=== PATIENT | female | born 1940 | race Caucasian/White ===

== ENCOUNTER → 2016-07-17 | Outpatient (CLI) | payer MEDICARE ==
[~2016-07-17] MED LIST: ALBUTEROL MININEB NEB; ALTACE PO; AMOXICILLIN875 MG PO; ANEXSIA 7.5/3251 TA1 PO; ANTARA; ASPIRIN81 M2 PO; ASPIRINEC PO; BAYER CHEWABLE81 MG PO; BETAPACE80 MG PO; BROVANA; CALTRATE 600 W-1 TAB PO; CARAFATE1 G PO; CARVEDILOL6.25 MG PO; CENTRUM SILVER PO; COMBIVENT U/D3 M2 INH; DULERA 200 MCG/13 GM INH; EZETIMIBE10 MG PO; FERRO-TIME325 MG PO; FERROUS GLUCON324 MG PO; FERROUS SULFAT325 MG PO; KCL PO; LASIX20 MG PO; LIPITOR80 MG PO; LISINOPRIL10 MG PO; LOPRESSOR PO; LORCET PLUS 7.1 EACH PO; NEXIUM PO; NITROSTAT0.4 MG SL; ONDANSETRON ODT4 MG PO; OXYGEN; PEPCID40 MG PO; PLAVIX PO; PLETAL50 MG PO; POTASSIUM GLU2.5 ME1 PO; POTASSIUM99 M2 PO; PREDNISONE PO; PRILOSEC PO; REQUIP4 MG PO; ROLLATOR; ROPINIROLE HCL4 M1 PO; TEMAZEPAM PO; TEMAZEPAM30 MG PO; TIZANIDINE HCL2 MG PO; TOPROL XL PO; VITAMIN D-32000 UNI2 PO; VITAMIN D32000 UNIT PO; WELLBUTRIN PO; XARELTO15 MG PO; XOPENEX HFA15 GM NEB; ZOCOR PO
--- NOTE | ~2016-07-17 | CT57 ---
[facility] A Service of [facility] & [facility] RADIOLOGY TEXT RESULTS PATIENT: ERICKSON VIZCARRA [facility] UN[facility] #: [id number] AGE: [address]: David Julien MD SEX: F ORDER DR: [id number] [facility]. [place], [place] [address] [id number] O MR#: [id number] [facility] #: [id number] NAME: ERICKSON VIZCARRA : 1940 SEX: F STUDY DATE/TIME: 07/17/2016 15:17 [facility] RO[facility]: STUDY DESCRIPTION: CT Chest Wo Cont Attending Physician: David Julien M.D. Referring Physician: David Julien M.D. Ordering Physician: David Julien M.D. Primary Care Physician: David Julien M.D. MEDICAL IMAGING REPORT This report is preliminary unless electronic signature is present EXAM CT of the chest without contrast. INDICATION Worsening shortness of breath for ovy-tf-vfapj months. COPD. TECHNIQUE CT of the chest was performed without contrast. Coronal and sagittal reformatted images were obtained. Reformatted images were obtained. COMPARISON Comparison with 03/13/16. This CT exam was performed with one or more of the following radiation dose reduction techniques: automatic exposure control, adjustment of mA and/or kV according to patient size, and iterative reconstruction. FINDINGS Emphysema. Stable 5 mm nodule in the right upper lobe on image 28. There is an irregular parenchymal density in the left lower lobe which may be slightly smaller particularly when seen on the coronal view where it appears more linear rather than nodular. There is some slightly increased at presumed scarring more inferiorly within the left lower lobe. There is some minimal scarring or atelectasis in the base of the right lower lobe. No new pulmonary nodules. Prior sternotomy and CABG. No suspicious lymphadenopathy or pleural effusion. Limited imaging of the upper abdomen is unremarkable. The bone windows are unremarkable. IMPRESSION 1. Irregular parenchymal density in the left lower lobe appears slightly smaller particularly when viewed of the coronal slices. Continued [facility] A Service of [facility] & [facility] RADIOLOGY TEXT RESULTS PATIENT: ERICKSON VIZCARRA LOCATION: [facility] : 38 UNIT #: [id number] AGE: [address]: David Julien MD SEX: F ORDER DR: followup is recommended. 2. Stable 5 mm nodule in the right upper lobe. 3. Linear areas of scarring or atelectasis elsewhere in the lungs. Dictated by... Jan Pickering M.D. THIS IS AN ELECTRONICALLY VERIFIED REPORT Jan Pickering M.D. at 07/18/2016 5:15 PM STEPHENIE/paz TD: 07/17/2016 23:48 JOB #: [id number] MEDICAL IMAGING REPORT Page 1 of 1 COPY
== END | disposition home or self-care (01) ==
LOC: CCAT 14:43
DX: J44.9 Chronic obstructive pulmonary disease, unspecified (principal); J98.4 Other disorders of lung; R91.1 Solitary pulmonary nodule
CPT/HCPCS: 71250

== ENCOUNTER 2016-07-28 11:03 | Emergency (ER) | payer MEDICARE ==
--- NOTE | ~2016-07-28 | CT16 ---
[facility] A Service of [facility] / [facility] RADIOLOGY TEXT RESULTS PATIENT: ERICKSON VIZCARRA LOCATION: [facility] : 38 UNIT #: [id number] AGE: [address]: Jak Gregg MD SEX: F ORDER DR: [id number] [facility] [address] [place], [place] [address] [id number] E MR#: [id number] Acc #: [id number] NAME: ERICKSON VIZCARRA : 1940 SEX: F STUDY DATE/TIME: 07/28/2016 13:58 UNIT: [facility] ROOM: STUDY DESCRIPTION: CT Angio Chest for PE Attending Physician: Jak Gregg M.D. Ordering Physician: Jak Gregg M.D. Primary Care Physician: David Julien M.D. MEDICAL IMAGING REPORT This report is preliminary unless electronic signature is present EXAM Chest CTA, 07/28 INDICATION Shortness of air and left lower rib and chest pain for jpx-yg-yscos months. History of COPD. TECHNIQUE Axial images were obtained through the chest following IV contrast administration. 3-D reformats were obtained. This CT exam was performed with one or more of the following radiation dose reduction techniques: automatic exposure control, adjustment of mA and/or kV according to patient size, and iterative reconstruction. COMPARISON 07/17/2016. FINDINGS There is no pulmonary embolism or aortic dissection. There is coronary artery disease and extensive atherosclerotic disease. There is no pleural or pericardial effusion. There is no adenopathy. There is a high-grade stenosis in the proximal left subclavian artery distal to its origin. There is emphysema. There is a stable 5.0 mm right middle lobe nodule. Presumed chronic scarring in the left lower lobe is also stable. There is some atelectasis in the right lower lobe today. There are no infiltrates seen to suggest pneumonia. Upper abdomen shows changes of cholecystectomy as well as atherosclerotic disease. IMPRESSION 1. No pulmonary embolism or aortic dissection. 2. Emphysema with stable chronic scarring in the left lower lobe. 3. Stable right middle lobe 5.0 mm nodule. [facility] A Service of [facility] & [facility] RADIOLOGY TEXT RESULTS PATIENT: ERICKSON VIZCARRA [id number] 38 UNIT #: [id number] AGE: [address]: Jak Gregg MD SEX: F ORDER DR: 4. New mild atelectasis right lower lobe. 5. Extensive atherosclerotic disease with high-grade stenosis in the left subclavian artery just distal to its origin. 6. Coronary artery disease. Dictated by... Jake Burton Jr., M.D. THIS IS AN ELECTRONICALLY VERIFIED REPORT Jake Burton Jr., M.D. at 07/28/2016 5:00 PM LIZZ/heath TD: 07/28/2016 16:01 JOB #: [id number] MEDICAL IMAGING REPORT Page 1 of 1 COPY
--- NOTE | ~2016-07-28 | EKG ---
PATIENT: VIZCARRA, DENVER UNIT #: [id number] Ventricular Rate: 65 BPM Atrial Rate: 65 BPM P-R Interval: 134 ms QRS Duration: 86 ms Q-T Interval: 394 ms QTC Calculation(Bezet): 409 ms P [place]: 37 degrees Calculated R [place]: 72 degrees Calculated T [place]: 78 degrees Diagnosis Line: Normal sinus rhythm Diagnosis Line: Normal ECG Diagnosis Line: When compared with ECG of 17-DEC-2015 19:17, Diagnosis Line: Nonspecific T wave abnormality, worse in Lateral Diagnosis Line: leads Diagnosis Line: Confirmed by JOE ZAPATA MD ([id number]) on 07/29/2016 Diagnosis Line: 7:31:59 AM INTERPRETING MD: BENNY MORA
--- NOTE | ~2016-07-28 | CR72 ---
[facility] A Service of [facility] RADIOLOGY TEXT RESULTS PATIENT: ERICKSON VIZCARRA LOCATION: [facility] : 38 UNIT #: [id number] AGE: [address]: Jak Gregg MD SEX: F ORDER DR: [id number] [facility] [address] [place], [place] [address] [id number] E MR#: [id number] Acc #: [id number] NAME: ERICKSON VIZCARRA : 1940 SEX: F STUDY DATE/TIME: 07/28/2016 12:37 UNIT: [facility] ROOM: STUDY DESCRIPTION: CR Chest Single View Portable Attending Physician: Jak Gregg M.D. Ordering Physician: Jak Gregg M.D. Primary Care Physician: David Julien M.D. MEDICAL IMAGING REPORT This report is preliminary unless electronic signature is present EXAM Chest portable 07/28/2016 1237 hours CLINICAL HISTORY 76-year-old woman with shortness of air and pain in the lower left ribs today. COMPARISON Chest CT 07/17/2016. FINDINGS Single upright portable view demonstrates CABG change with a single vertically-oriented wire at the sternum. This is unchanged. The heart size is normal. The pulmonary vascularity is normal. There is underlying emphysematous change with linear density at the left base unchanged. No acute pulmonary or pleural finding is seen. No rib lesion is seen. IMPRESSION Emphysematous changes with linear density at the left base similar to prior exams. No acute superimposed pulmonary density or pleural effusion. No rib lesion seen. Dictated by... Deja Munoz M.D. THIS IS AN ELECTRONICALLY VERIFIED REPORT Deja Munoz M.D. at 07/28/2016 8:02 PM EMMANUELLE/isadora TD: 07/28/2016 14:19 JOB #: [id number] [facility] A Service [facility] RADIOLOGY TEXT RESULTS PATIENT: ERICKSON VIZCARRA LOCATION: [facility] #: [id number] : 38 UNIT #: [id number] AGE: [address]: Jak Gregg MD SEX: F ORDER DR: MEDICAL IMAGING REPORT Page 1 of 1 COPY
[~2016-07-28 11:03] MED LIST changes: -AMOXICILLIN875 MG PO; -BAYER CHEWABLE81 MG PO; -BETAPACE80 MG PO; -COMBIVENT U/D3 M2 INH; -DULERA 200 MCG/13 GM INH; -EZETIMIBE10 MG PO; -FERROUS GLUCON324 MG PO; -FERROUS SULFAT325 MG PO; -LASIX20 MG PO; -LIPITOR80 MG PO; -LORCET PLUS 7.1 EACH PO; -NITROSTAT0.4 MG SL; -PEPCID40 MG PO; -POTASSIUM GLU2.5 ME1 PO; -POTASSIUM99 M2 PO; -PREDNISONE PO; -ROLLATOR; -ROPINIROLE HCL4 M1 PO; -TIZANIDINE HCL2 MG PO; -VITAMIN D-32000 UNI2 PO; -XARELTO15 MG PO
[2016-07-28 11:52] LABS: BASOPHIL% 0.8 % (0-2.5); EOSINOPHIL# 0.1 X10e3 (0-0.7); EOSINOPHIL% 2.5 % (0.0-7.0); HEMATOCRIT 33.6 % (35.0-45.0); LYMPHOCYTE# 0.5 X10e3 (1.0-3.5); MEAN CELL VOLUME 89.9 FL (83-96); MEAN CORPUSCULAR HEMOGLOBIN 29.4 PG (28-34); MEAN CORPUSCULAR HGB CONC 32.7 g/dL (30-36); MEAN PLATELET VOLUME 7.3 FL (6.5-11.5); MONOCYTE# 0.5 X10e3 (0-1.0); MONOCYTE% 8.2 % (3.0-12.0); NEUTROPHIL# 4.7 X10e3 (1.5-7.1); NEUTROPHIL% 79.5 % (40-75); PLATELET COUNT 294 X10e3 (140-420); RED BLOOD COUNT 3.74 X10e (3.90-5.30); RED CELL DISTRIBUTION WIDTH 15.2 % (11.0-15.5); WHITE BLOOD COUNT 5.9 X10e3 (4.0-10.5)
[2016-07-28 11:54] LABS: DIFF IND NO
[2016-07-28 12:07] LABS: PARTIAL THROMBOPLASTIN TIME 22.9 SECONDS (23.5-31.3)
[2016-07-28 12:11] LABS: POC - CKMB <1.0 ng/mL (0.0-7.9); POC - TROPONIN <0.05 ng/mL (<=0.05)
[2016-07-28 12:22] LABS: ALBUMIN SERUM 3.6 g/dL (3.5-5.0); ALKALINE PHOSPHATASE 84 U/L (32-92); ALT (SGPT) 15 U/L (10-40); AST (SGOT) 18 U/L (10-42); BILIRUBIN,TOTAL 0.5 mg/dL (0.2-2.0); BLOOD UREA NITROGEN 20 mg/dL (9-23); BUN/CREATININE RATIO 22.22; CARBON DIOXIDE 34 mmol/L (22-31); CHLORIDE 98 mmol/L (100-111); CREATININE SERUM 0.9 mg/dL (0.6-1.4); GLOM FILT RATE Estimated 61.3 mL/min (>60); GLUCOSE FASTING 127 mg/dL (70-110); POTASSIUM 4.1 mmol/L (3.5-5.1); PROTEIN TOTAL SERUM 6.5 g/dL (6.0-8.3); SODIUM 138 mmol/L (135-145)
[2016-07-28 12:23] LABS: BILIRUBIN, DIRECT <0.1 mg/dL (0.0-0.2); BILIRUBIN,INDIRECT 0.4 mg/dL (0.0-0.9)
== END 2016-07-28 15:28 | disposition home or self-care (01) ==
LOC: CED 11:03
PROVIDERS: Emergency Medicine
DX: J44.1 Chronic obstructive pulmonary disease with (acute) exacerbation (principal); R07.89 Other chest pain; K21.9 Gastro-esophageal reflux disease without esophagitis; E78.5 Hyperlipidemia, unspecified; I10 Essential (primary) hypertension; Z86.79 Personal history of other diseases of the circulatory system; Z90.49 Acquired absence of other specified parts of digestive tract; Z79.899 Other long term (current) drug therapy
CPT/HCPCS: 36415; 71010; 71275; 80048; 80076; 82553; 83880; 84484; 85025; 85610; 85730; 87040; 93005; 94640; 96374; 96375; 99285; J2270; J2405; J2930; Q9967

== ENCOUNTER → 2016-09-25 | Outpatient (CLI) | payer MEDICARE ==
[~2016-09-25] MED LIST changes: +AMOXICILLIN875 MG PO; +BAYER CHEWABLE81 MG PO; +BETAPACE80 MG PO; +COMBIVENT U/D3 M2 INH; +DULERA 200 MCG/13 GM INH; +EZETIMIBE10 MG PO; +FERROUS GLUCON324 MG PO; +FERROUS SULFAT325 MG PO; +LASIX20 MG PO; +LIPITOR80 MG PO; +LORCET PLUS 7.1 EACH PO; +NITROSTAT0.4 MG SL; +PEPCID40 MG PO; +POTASSIUM GLU2.5 ME1 PO; +POTASSIUM99 M2 PO; +PREDNISONE PO; +ROLLATOR; +ROPINIROLE HCL4 M1 PO; +TIZANIDINE HCL2 MG PO; +VITAMIN D-32000 UNI2 PO; +XARELTO15 MG PO
--- NOTE | ~2016-09-25 | MY29 ---
[facility] A Service of [facility] & [facility] RADIOLOGY TEXT RESULTS PATIENT: ERICKSON VIZCARRA LOCATION: [facility] : 38 UNIT #: [id number] AGE: [address]: David Julien MD SEX: F ORDER DR: [id number] [facility] [address] [place], [place] [address] [id number] O MR#: [id number] Acc #: [id number] NAME: ERICKSON VIZCARRA : 1940 SEX: F STUDY DATE/TIME: 09/25/2016 10:33 UNIT: [facility] ROOM: STUDY DESCRIPTION: MY SABRINA SCREENING W/ CAD BILAT Attending Physician: David Julien M.D. Referring Physician: David Julien M.D. Ordering Physician: David Julien M.D. Primary Care Physician: David Julien M.D. MEDICAL IMAGING REPORT This report is preliminary unless electronic signature is present EXAM Digital screening mammogram 09/25/2016 HISTORY 76-year-old woman. No risk elevation. Annual screen. COMPARISON Mammograms 08/10/2014, 09/11/2015. FINDINGS Digital imaging of each breast was completed utilizing screening protocol. Review includes FDA-approved CAD device. Breast parenchyma remains dense with a small nodular pattern centrally located in each breast slightly dominant in the right breast. I see no suspicious mass characteristics. There are no interval-occurring microcalcifications and no suspicious architectural deformity. IMPRESSION Benign mammogram. Annual screening recommended. Patient's over the age of 40 are entered into a reminder system with target due date for the next mammogram. BIRADS: 2 Benign findings Dictated by... Enrique Dougherty M.D. THIS IS AN ELECTRONICALLY VERIFIED REPORT Enrique Dougherty M.D. at 09/25/2016 3:59 PM KENNEDY/isadora [facility] A Service of [facility] & [facility] RADIOLOGY TEXT RESULTS PATIENT: ERICKSON VIZCARRA [id number] : 38 UNIT #: [id number] AGE: [address]: David Julien MD SEX: F ORDER DR: TD: 09/25/2016 15:29 JOB #: [id number] MEDICAL IMAGING REPORT Page 1 of 1 COPY
== END | disposition home or self-care (01) ==
LOC: CWCC 10:11
DX: Z12.31 Encounter for screening mammogram for malignant neoplasm of breast (principal)
CPT/HCPCS: G0202

== ENCOUNTER 2016-10-08 20:36 | Inpatient (IN) | payer MEDICARE ==
[~2016-10-08] VITALS: Ht 162.6 cm; Wt 62.2 kg
--- NOTE | ~2016-10-08 | EKG ---
PATIENT: [facility] UNIT #: [id number] Ventricular Rate: 65 BPM Atrial Rate: 65 BPM P-R Interval: 146 ms QRS Duration: 88 ms Q-T Interval: 406 ms QTC Calculation(Bezet): 422 ms P [place]: 68 degrees Calculated R [place]: 72 degrees Calculated T [place]: 89 degrees Diagnosis Line: Sinus rhythm with Premature atrial complexes Diagnosis Line: Otherwise normal ECG Diagnosis Line: No previous ECGs available Diagnosis Line: Confirmed by JOE ZAPATA MD ([id number]) on 10/09/2016 Diagnosis Line: 5:13:05 PM INTERPRETING MD: BENNY MORA
--- NOTE | ~2016-10-08 | CR195 ---
[facility] A Service of [facility] & [facility] RADIOLOGY TEXT RESULTS PATIENT: ERICKSON SILVA LOCATION: [facility] 560-01 : 38 UNIT #: [id number] AGE: [address]: Fareed Carreon MD SEX: F ORDER DR: [id number] [facility] [address] [place], [place] [address] [id number] I MR#: [id number] Acc #: [id number] NAME: ERICKSON SILVA : 1940 SEX: F STUDY DATE/TIME: 10/09/2016 0:51 UNIT: [facility] ROOM: [facility] STUDY DESCRIPTION: CR Neck Soft Tissue Attending Physician: Fareed Carreon M.D. Ordering Physician: Kermit Dale D.O. Primary Care Physician: David Julien M.D. MEDICAL IMAGING REPORT This report is preliminary unless electronic signature is present EXAM Soft tissue neck series 10/09/2016 HISTORY A 76-year-old female in the ED complaining of 1-month history intermittent shortness of air and chest pain. Decreased oxygen saturation tonight. History of COPD. TECHNIQUE Two-view soft tissue neck series. FINDINGS Examination is negative. The epiglottis is not enlarged. No visible airway narrowing or tracheal deviation. No prevertebral soft tissue swelling. IMPRESSION Negative soft tissue neck series. Dictated by... Pedro Mack M.D. THIS IS AN ELECTRONICALLY VERIFIED REPORT Pedro Mack M.D. at 10/12/2016 11:06 PM Dary TD: 10/09/2016 13:30 JOB #: [id number] MEDICAL IMAGING REPORT Page 1 of 1 COPY
--- NOTE | ~2016-10-08 | CT16 ---
[facility] A Service of [facility] RADIOLOGY TEXT RESULTS PATIENT: ERICKSON SILVA LOCATION: [facility] 560-01 : 38 UNIT #: [id number] AGE: [address]: Fareed Carreon MD SEX: F ORDER DR: [id number] [facility] [address] [place], [place] [address] [id number] I MR#: [id number] Acc #: [id number] NAME: ERICKSON SILVA : 1940 SEX: F STUDY DATE/TIME: 10/09/2016 2:37 UNIT: [facility] ROOM: [facility] STUDY DESCRIPTION: CT Angio Chest for PE Attending Physician: Fareed Carreon M.D. Ordering Physician: Kermit Dale D.O. Primary Care Physician: David Julien M.D. MEDICAL IMAGING REPORT This report is preliminary unless electronic signature is present EXAM CT chest with contrast, pulmonary arteriography protocol, 10/09/2016 HISTORY A 76-year-old female in the ED complaining of 1-day history of shortness of air and chest pain radiating into the right arm and back. TECHNIQUE CT examination of the chest with IV contrast using pulmonary arteriography protocol. CTA MIP images of the pulmonary arteries were reformatted in multiple planes. This CT exam was performed with one or more of the following radiation dose reduction techniques: automatic exposure control, adjustment of mA and/or kV according to patient size, and iterative reconstruction. COMPARISON STUDIES CTA chest, 07/28/2016. CT chest, 05/24/2007. FINDINGS No pulmonary embolism is demonstrated. Thoracic aorta is normal in caliber. Postop changes previous CABG surgery. Pleural and subpleural scarring in the peripheral left lower lobe, unchanged. Benign 5 mm pulmonary nodule in the right midlung, unchanged since 2007. Moderately severe diffuse pulmonary emphysema. No airspace consolidation or pleural effusion. No suspicious mass or adenopathy within the mediastinum or pulmonary yary. IMPRESSION [facility] A Service of [facility] RADIOLOGY TEXT RESULTS PATIENT: ERICKSON SILVA LOCATION: [facility] 560-01 : 38 UNIT #: [id number] AGE: [address]: Fareed Carreon MD SEX: F ORDER DR: 1. No evidence of pulmonary embolism or other acute vascular abnormality within the chest. 2. Advanced pulmonary emphysema. Stable chronic pulmonary and subpleural scarring in the peripheral left lung base. 3. A 5 mm benign pulmonary nodule in the right middle lobe unchanged since 05/23/2008. 4. Postop changes CABG surgery. Dictated by... Pedro Mack M.D. THIS IS AN ELECTRONICALLY VERIFIED REPORT Pdero Mack M.D. at 10/12/2016 11:07 PM Dary TD: 10/09/2016 13:48 JOB #: [id number] MEDICAL IMAGING REPORT Page 1 of 1 COPY
--- NOTE | ~2016-10-08 | CO ---
Unit #: [id number] #: [id number] Patient: ERICKSON SILVA [id number] [facility]. [place], [place] [address] [id number] I MR#: [id number] NAME: ERICKSON SILVA ROOM: 560 Age: 76 Sex: F Admission Date: 10/09/2016 : 1940 Attending Physician: Fareed Carreon M.D. Primary Care Physician: David Julien M.D. CONSULTATION REPORT REASON FOR CONSULTATION Atrial fibrillation. HISTORY OF PRESENT ILLNESS This is a 76-year-old white female who has known coronary artery disease where she underwent coronary artery bypass graft x3 in the past. She is known to have hypertension, hyperlipidemia, and a history of lung cancer where she underwent radiation therapy. The patient gives a history of having valve replacement with her coronary artery bypass graft. The patient presents to the emergency room with right posterior shoulder pain. She states her pain has been ongoing for at least the past month. It is made worse with movement. An electrocardiogram done in the emergency room found the patient to be in atrial fibrillation with rapid ventricular response with a rate of 140 beats per minute. She was unaware of palpitations. She had no chest pain at the time of presentation in the emergency room; however, the patient states she does have midsternal chest pain and epigastric pain on occasion. She is very active where she ambulates around her apartment complex but gets short of breath with exertion and has to stop to sit to rest before proceeding on. She also reports weight loss from 138 a month ago to 124 today. She reports a good appetite. Troponin is negative. She was started on Cardizem drip in the emergency room and has since converted to normal sinus rhythm. PAST MEDICAL HISTORY 1. A 2D echocardiogram, October 19, 2013, at [facility] which shows an ejection fraction of 64%. Right ventricle mildly enlarged. There is mild aortic stenosis with mean gradient of 11 mmHg. Peak gradient of 20 mmHg. Calculated aortic valve area 2.15 cm square. Vwsteqaj-xb-bkwvco tricuspid regurgitation with right ventricular systolic pressure of 39 mmHg. 2. Lexiscan Cardiolite stress test, October 20, 2013, at [facility] that revealed no ischemia or infarct. An ejection fraction of 77%. 3. Hypertension. 4. Hyperlipidemia. 5. Coronary artery bypass graft x3 with questionable valve replacement in 2002. 6. Peripheral vascular disease, status post bilateral carotid endarterectomy. 7. History of gastrointestinal bleed with arteriovenous malformation, October 2013, status post cauterization. 8. Lung cancer, status post radiation therapy. 9. COPD. Unit #: [id number] #: [id number] Patient: ERICKSON SILVA 10. Former smoker. PAST SURGICAL HISTORY 1. Coronary artery bypass graft x3 with questionable valve surgery in 2002. No details available. 2. Bilateral carotid endarterectomy. 3. Hemorrhoidectomy. 4. Right foot surgery. 5. Cholecystectomy. 6. Bilateral cataract extraction. SOCIAL HISTORY The patient lives in assisted living facility. She quit smoking at the time of her bypass surgery in 2002. She denies illicit drug and alcohol use. FAMILY HISTORY Positive for heart problems with father. ALLERGIES No known drug allergies. HOME MEDICATIONS 1. Vitamin D3 at 2000 units daily. 2. Restoril 30 mg nightly. 3. Potassium gluconate one tablet daily. 4. Aspirin 81 mg daily. 5. Hydrocodone/acetaminophen 7.5/325 one q.i.d. 6. Nitroglycerin 0.4 mg sublingual p.r.n. 7. Ropinirole 4 mg nightly. 8. Zetia 10 mg daily. 9. Ferrous sulfate 325 mg daily. 10. Pepcid 40 mg daily. 11. Carvedilol 6.25 mg b.i.d. 12. Lisinopril 10 mg daily. 13. Zanaflex 2 mg q.i.d. p.r.n. 14. Lipitor 80 mg nightly. 15. Furosemide 20 mg daily. REVIEW OF SYSTEMS CONSTITUTIONAL: Negative for fever or chills. Has report of weight loss. No fatigue or weakness. HEENT: No headache, hearing or visual changes, difficulty with swallowing. No dizziness. CARDIOVASCULAR: Has chest pain described in the HPI. Denies palpitations. No paroxysmal nocturnal dyspnea or orthopnea. No syncope or near syncope. RESPIRATORY: Has dyspnea on exertion. No cough or hemoptysis. GASTROINTESTINAL: Complained of epigastric pain. No nausea, vomiting. No constipation or melena. EXTREMITIES: Negative for lower extremity edema. Complains of right posterior shoulder pain. PHYSICAL EXAMINATION VITAL SIGNS: Blood pressure 135/53, heart rate 68, temperature 98.1, BMI 21. GENERAL: This is a mildly obese 76-year-old white female who is in no acute distress. Unit #: [id number] #: [id number] Patient: DOLLY VIZCARRA,ERICKSON NEUROLOGIC: She is awake, alert and oriented. Noted for forgetfulness. NECK: Trachea is midline. No thyromegaly or lymphadenopathy. No jugular venous distention. HEART: S1, S2 heart sounds are normal. No murmurs. No rubs. No clicks. Regular rate and rhythm. LUNGS: Rhonchi in both lung bases. ABDOMEN: Soft, nontender but bowel sounds are present. No masses appreciated. EXTREMITIES: Without leg edema. SKIN: Warm and dry. DIAGNOSTIC STUDIES LABORATORY: Glucose 95, BUN 18, creatinine 0.9, sodium 134, potassium 3.7. CK total 49, troponin 0.04. BNP 166. TSH 0.86, free T4 of 0.9. White count 5, hemoglobin 10.7, hematocrit 32.4, platelet count 320,000. IMAGING: Chest x-ray showed pulmonary emphysema. CT angio of the chest shows no evidence of pulmonary embolism or acute vascular abnormality, advanced pulmonary emphysema. CARDIOVASCULAR: Presenting electrocardiogram shows atrial fibrillation with rapid ventricular response, rate of 148 beats per minute with premature ventricular complex. Repeat electrocardiogram: Normal sinus rhythm with rate of 73 beats per minute with premature atrial complexes. There is T-wave inversion in the lateral leads. IMPRESSION 1. New-onset atrial fibrillation, rapid ventricular response, converted to normal sinus rhythm. 2. Status post coronary artery bypass graft with questionable valve surgery. 3. Status post radiation therapy for lung cancer. 4. Stable angina pectoris. 5. Hypertension. 6. Hyperlipidemia. 7. Chronic obstructive pulmonary disease. PLAN 1. Cardiology was consulted for atrial fibrillation with rapid ventricular response. The patient converted to normal sinus rhythm with IV Cardizem. Will discontinue Cardizem drip. Start the patient on sotalol 40 mg b.i.d. 2. Carvedilol will be discontinued. 3. The patient has a CHADS 2 VASc score of 5 and needs long-term anticoagulation. Will start the patient on Xarelto 50 mg daily. decision support manager will obtain the patient's cost. 4. Unable to obtain the bypass report from [facility] to determine if the patient had valve surgery. Echocardiogram, Lexiscan Cardiolite stress test, and cardiology note was reviewed. 5. Will follow the patient with you. Thank you for allowing us to assist with this patient's care. Unit #: [id number] #: [id number] Patient: ERICKSON SILVA Dictated by... Luis Bojorquez A.P.R.N. for Ifrah Costa TD: 10/10/2016 14:35 JOB #: [id number] CONSULTATION REPORT Page 1 of 1 X Luis Bojorquez APRN X CONSULTATION REPORT
--- NOTE | ~2016-10-08 | EKG ---
[facility] [id number] Ventricular Rate: 60 BPM Atrial Rate: 60 BPM P-R Interval: 132 ms QRS Duration: 86 ms Q-T Interval: 468 ms QTC Calculation(Bezet): 468 ms P [place]: 69 degrees Calculated R [place]: 72 degrees Calculated T [place]: 106 degrees Diagnosis Line: Sinus rhythm with Premature atrial complexes Diagnosis Line: Nonspecific ST and T wave abnormality Diagnosis Line: Abnormal ECG Diagnosis Line: Diagnosis Line: Confirmed by WILFRED URENA MD ([id number]) on Diagnosis Line: 10/12/2016 4:57:46 PM INTERPRETING MD: MERI
--- NOTE | ~2016-10-08 | EKG ---
[facility] [place] [id number] Ventricular Rate: 148 BPM Atrial Rate: 136 BPM QRS Duration: 80 ms Q-T Interval: 276 ms QTC Calculation(Bezet): 433 ms Calculated R [place]: 87 degrees Calculated T [place]: -44 degrees Diagnosis Line: Atrial fibrillation with rapid ventricular Diagnosis Line: response with premature ventricular or aberrantly Diagnosis Line: conducted complexes Diagnosis Line: Septal infarct , age undetermined Diagnosis Line: ST and T wave abnormality, consider inferior Diagnosis Line: ischemia Diagnosis Line: Abnormal ECG Diagnosis Line: No previous ECGs available Diagnosis Line: Confirmed by JOE ZAPATA MD ([id number]) on 10/09/2016 Diagnosis Line: 5:12:46 PM INTERPRETING MD: BENNY MORA
--- NOTE | ~2016-10-08 | CR72 ---
[facility] A Service of [facility] RADIOLOGY TEXT RESULTS PATIENT: ERICKSON SILVA LOCATION: [facility] 560-01 : 38 UNIT #: [id number] AGE: [address]: Fareed Carreon MD SEX: F ORDER DR: [id number] [facility] [address] [place], [place] [address] [id number] I MR#: [id number] #: [id number] NAME: ERICKSON SILVA : 1940 SEX: F STUDY DATE/TIME: 10/09/2016 0:02 UNIT: [facility] ROOM: [facility] STUDY DESCRIPTION: CR Chest Single View Portable Attending Physician: Fareed Carreon M.D. Ordering Physician: Kermit Dale D.O. Primary Care Physician: David Julien M.D. MEDICAL IMAGING REPORT This report is preliminary unless electronic signature is present EXAM Chest x-ray, 10/09/2016. HISTORY 76-year-old female in the ED complaining of 1-month history of intermittent chest pain, back pain and shortness of air. TECHNIQUE AP portable upright chest x-ray. FINDINGS The exam shows no change since chest x-ray and chest CT of 07/28/2016. Advanced pulmonary emphysema with chronic scarring in the left lung base. Previous CABG surgery and presumed removal of prior sternotomy wires with the exception of a single upper midline sternotomy wire fragment remaining. Heart size normal. No pneumothorax, acute pulmonary infiltrate or pleural effusion. IMPRESSION 1. Pulmonary emphysema. Chronic left basilar scarring. 2. Postop changes, CABG, as noted. 3. No change since 07/28/2016. Dictated by... Pedro Mack M.D. THIS IS AN ELECTRONICALLY VERIFIED REPORT Pedro Mack M.D. at 10/12/2016 11:06 PM BRIDGETT/padmini TD: 10/09/2016 13:09 JOB #: [id number] [facility] A Service of [facility] RADIOLOGY TEXT RESULTS PATIENT: ERICKSON SILVA LOCATION: [facility] 560-01 : 38 UNIT #: [id number] AGE: [address]: Fareed Carreon MD SEX: F ORDER DR: MEDICAL IMAGING REPORT Page 1 of 1 COPY
--- NOTE | ~2016-10-08 | EKG ---
PATIENT: [facility] UNIT #: [id number] Ventricular Rate: 79 BPM Atrial Rate: 79 BPM P-R Interval: 146 ms QRS Duration: 82 ms Q-T Interval: 478 ms QTC Calculation(Bezet): 548 ms P [place]: 71 degrees Calculated R [place]: 77 degrees Calculated T [place]: 110 degrees Diagnosis Line: Sinus rhythm with Premature atrial complexes Diagnosis Line: ST and T wave abnormality, consider anterolateral Diagnosis Line: ischemia Diagnosis Line: Prolonged QT Diagnosis Line: Abnormal ECG Diagnosis Line: Diagnosis Line: Confirmed by WILFRED URENA MD ([id number]) on Diagnosis Line: 10/12/2016 4:44:25 PM INTERPRETING MD: MERI
--- NOTE | ~2016-10-08 | CO ---
Unit #: [id number] #: [id number] Patient: NIEVES SILVA [id number] [address] [place], [place] [address] [id number] I MR#: [id number] NAME: NIEVES SILVA ROOM: 560 Age: 76 Sex: F Admission Date: 10/09/2016 : 1940 Attending Physician: Fareed Carreon M.D. Primary Care Physician: David Julien M.D. CONSULTATION REPORT HISTORY OF PRESENT ILLNESS Miss Nieves Peña is a 76-year-old white female with a history of chronic respiratory failure maintained on home O2, COPD, coronary artery disease, chronic anemia, non-small cell lung cancer status post radiation therapy, hypertension, hyperlipidemia, peripheral vascular disease, chronic low back pain, restless legs, presented with right posterior shoulder pain, worse with motion, had some increasing shortness of breath. In the emergency room she was noted to be in afib with rapid ventricular response. On the ER sheet her O2 saturation was 97% on 2 L, blood pressure is 107/37, pulse was initially recorded at 61 and she was afebrile. She was given Solu-Medrol 125 mg IV, 5 of [place], started on a Cardizem drip at 10 mg per hour after a 10 mg bolus. A chest x-ray showed no acute infiltrate. CT scan of the chest in emergency room showed no evidence of pulmonary emboli. It did show emphysematous changes bilaterally and some scarring in the left lower lobe peripherally. PAST MEDICAL HISTORY Medical problems as noted above including coronary artery disease, peripheral artery disease, hypertension, hyperlipidemia, COPD, chronic respiratory failure, maintained on home O2, non-small cell lung cancer, I think status post radiation therapy, history of chronic anemia. PAST SURGICAL HISTORY Cholecystectomy, right foot surgery, hemorrhoidectomy, coronary bypass grafting, bilateral carotid endarterectomy, bilateral cataract extraction. ALLERGIES None known. HOME MEDICATIONS Vitamin D3, temazepam, potassium, Russ aspirin 81 mg, Lorcet, Nitrostat, Ropinirole, ezetimibe, ferrous sulfate, Pepcid, Coreg, lisinopril, tizanidine, Lipitor, Lasix. FAMILY HISTORY Negative for lung disease. SOCIAL HISTORY No alcohol, reformed smoker. REVIEW OF SYMPTOMS CONSTITUTIONAL: No fevers or chills. HEENT: No rhinorrhea or nasal congestion. Unit #: [id number] #: [id number] Patient: NIEVES SILVA PULMONARY: Shortness of breath on exertion. CARDIAC: Right-sided posterior chest pain. Afib noted. GASTROINTESTINAL: No nausea, vomiting. GENITOURINARY: No hematuria or dysuria. ENDOCRINE: No polyuria or polydipsia. HEMATOLOGIC: Does have easy bruising. SKIN: No rash. NEUROLOGIC: No unilateral weakness or numbness. PHYSICAL EXAMINATION GENERAL: White female in no distress, lying in bed. VITAL SIGNS: Blood pressure is 135/53. Pulse 68. Respiratory rate 16. Afebrile. HEENT: Normocephalic and atraumatic. Pupils equal, round and reactive. Sclerae nonicteric. Nasal passages patent. Posterior pharynx clear. NECK: Supple. Trachea midline. No cervical or supraclavicular lymphadenopathy. LUNGS: Revealed diminished breath sounds bilaterally. Prolonged respiratory phase. No wheezing. CARDIAC: Heart sounds distant, irregularly irregular rhythm. ABDOMEN: Nontender, bowel sounds present, no hepatosplenomegaly. EXTREMITIES: Without cyanosis, clubbing or edema. NEUROLOGIC: Awake, alert and oriented x3. Cranial nerves II-XII intact. Muscle strength symmetric bilaterally. Affect calm. SKIN: Skin is warm and dry. IMPRESSION 1. Chronic obstructive pulmonary disease with chronic respiratory failure, currently no bronchospasm. 2. Atrial fibrillation, rapid ventricular response, currently changed back to normal sinus rhythm. 3. History of lung cancer, status post radiation therapy. 4. Hypertension. 5. Hyperlipidemia. 6. Peripheral vascular disease. 7. Coronary artery disease, status post coronary artery bypass graft. PLAN Continue current pulmonary medicines, inhaled bronchodilators, inhaled corticosteroids, long-acting beta-agonist, long-acting muscarinics. She has been started on steroids. If she had wheezing, must have improved. Will decrease steroids. Will follow with you. Anticoagulation per Dr. Guerrier. Dictated by... Parag Up M.D. RENE/eber TD: 10/10/2016 17:30 JOB #: [id number] Unit #: [id number] #: [id number] Patient: NIEVES SILVA CONSULTATION REPORT Page 1 of 1 X Parag Up MD CONSULTATION REPORT
--- NOTE | ~2016-10-08 | HP ---
Unit #: [id number] #: [id number] Patient: ERICKSON SILVA [id number] [address] [place], [place] [address] [id number] I MR#: [id number] NAME: ERICKSON SILVA ROOM: 560 Age: 76 Sex: F Admission Date: 10/09/2016 : 1940 Attending Physician: Fareed Carreon M.D. Primary Care Physician: David Julien M.D. HISTORY AND PHYSICAL HISTORY OF PRESENT ILLNESS This is a 76-year-old white female with history of O2-dependent COPD, coronary artery disease, chronic anemia, history of left lung cancer status post radiation therapy, hypertension, hyperlipidemia, peripheral arterial disease, chronic low back pain, insomnia, restless leg syndrome. Presented herself to the emergency room with right posterior shoulder pain, worse with range of motion. Found to be in A fib with a rapid ventricular response in the emergency room. Started on IV Cardizem. Labs were fairly unremarkable. She instantly converted back to sinus rhythm and is admitted for further evaluation. She states that the pain is gone now. It is not like the angina she has had in the past. She states that the pain has only been there for 24 hours and was just worse with range of motion of the neck, left arm or worse with the right arm. It is not pleuritic. Apparently she had a CT scan of the chest in the emergency room that they reportedly say is negative, but I have no official report. ALLERGIES The patient has no known drug allergies. MEDICATIONS PRIOR TO ADMISSION Not reconciled yet but include aspirin 81 mg daily, furosemide 20 mg daily, temazepam 30 mg q.h.s., Lipitor, Coreg and lisinopril, Pepcid, Zetia, tizanidine, hydrocodone and ropinirole. PAST MEDICAL HISTORY 1. Coronary artery disease. 2. Peripheral arterial disease. 3. Hypertension. 4. Hyperlipidemia. 5. COPD. 6. Left lung cancer, type unknown. 7. Chronic anemia. SURGICAL HISTORY 1. Cholecystectomy. 2. Right foot surgery. 3. Hemorrhoidectomy. 4. Three-vessel coronary artery bypass grafting. 5. Bilateral carotid endarterectomies. 6. Bilateral cataract surgery. SOCIAL HISTORY Nondrinker, prior smoker. Unit #: [id number] #: [id number] Patient: [facility] FAMILY HISTORY Family history is noncontributory. PHYSICAL EXAMINATION GENERAL: She is awake, alert, oriented x3, and in no acute distress. ADMISSION VITALS: Afebrile. Pulse 63, respirations 20, blood pressure 101/37, O2 sat 98% on 2 liters. HEENT: Unremarkable, except for somewhat marr facies and a scar on the right side of her nose. NECK: Neck was supple without JVD, bruits, adenopathy or thyromegaly. CHEST: Diffusely decreased breath sounds but clear to auscultation. CARDIOVASCULAR: Heart has a regular rate and rhythm without any murmurs, rubs or gallops. ABDOMEN: Abdomen was soft, nondistended, nontender with positive bowel sounds and no hepatosplenomegaly. EXTREMITIES: Extremities showed no clubbing, cyanosis or edema. /RECTAL: Deferred. NEUROLOGIC: Exam is grossly intact. DIAGNOSTIC STUDIES LAB VALUES: CBC normal except for hemoglobin of 10.7. Cardiac enzymes normal x1 set. PT and PTT within normal limits. BNP 166. CMP normal except for sodium of 134 and an alkaline phosphatase of 95. IMAGING: Again, there is a handwritten report - CT scan chest negative - whatever that means. IMPRESSION 1. Musculoskeletal right upper extremity pain. 2. A fib, converted to sinus rhythm without any Cardizem. 3. Severe COPD. 4. Peripheral arterial disease. 5. Coronary artery disease status post coronary artery bypass grafting. 6. Restless leg syndrome. 7. Chronic anemia. 8. Chronic low back pain. 9. Hyperlipidemia. 10. Chronic insomnia. PLAN Check magnesium level. Check thyroid functions. Check a two-D echo with Doppler. Cardiology to see. Continue Cardizem. Hopefully we can switch her to oral Cardizem and discharge her in the near future. Dictated by Ifrah Dennis/shante TD: 10/09/2016 08:13 JOB #: [id number] Unit #: [id number] #: [id number] Patient: [facility] HISTORY AND PHYSICAL Page 1 of 1 X David Julien MD HISTORY AND PHYSICAL
--- NOTE | ~2016-10-08 | CR72 ---
[facility] A Service of [facility] RADIOLOGY TEXT RESULTS PATIENT: ERICKSON SILVA LOCATION: [facility] 560 : 38 UNIT #: [id number] AGE: [address]: Fareed Carreon MD SEX: F ORDER DR: [id number] [facility] [address] [place], [place] [address] [id number] I MR#: [id number] Acc #: [id number] NAME: ERICKSON SILVA : 1940 SEX: F STUDY DATE/TIME: 10/09/2016 0:54 UNIT: [facility] ROOM: [facility] STUDY DESCRIPTION: CR Chest Single View Portable Attending Physician: Fareed Carreon M.D. Ordering Physician: Kermit Dale D.O. Primary Care Physician: David Julien M.D. MEDICAL IMAGING REPORT This report is preliminary unless electronic signature is present EXAM Chest x-ray 10/09/2016 (0054 hours) HISTORY 76-year-old female in the ED complaining of worsening shortness of air. Decreasing oxygen saturation while in the ED tonight. TECHNIQUE AP upright chest x-ray. FINDINGS Advanced pulmonary emphysema. Chronic scarring in the lung bases, greater on the left. No visible pneumothorax, airspace consolidation, or pleural effusion. Postop changes prior CABG surgery. Heart size normal. No significant change since the earlier study today accounting for more shallow lung expansion. IMPRESSION 1. Pulmonary emphysema. Bibasilar pulmonary scarring. 2. CABG. 3. No change since the earlier exam. Dictated by... Pedro Mack M.D. THIS IS AN ELECTRONICALLY VERIFIED REPORT Pedro Mack M.D. at 10/12/2016 11:06 PM BRIDGETT/martin TD: 10/09/2016 13:26 JOB #: [id number] [facility] A Service [facility] RADIOLOGY TEXT RESULTS PATIENT: ERICKSON SILVA LOCATION: [facility] 560 : 38 UNIT #: [id number] AGE: [address]: Fareed Carreon MD SEX: F ORDER DR: MEDICAL IMAGING REPORT Page 1 of 1 COPY
--- NOTE | ~2016-10-08 | EKG ---
PATIENT: [facility] UNIT #: [id number] Ventricular Rate: 73 BPM Atrial Rate: 73 BPM P-R Interval: 168 ms QRS Duration: 90 ms Q-T Interval: 436 ms QTC Calculation(Bezet): 480 ms P [place]: 62 degrees Calculated R [place]: 68 degrees Calculated T [place]: 111 degrees Diagnosis Line: Sinus rhythm with Premature atrial complexes Diagnosis Line: ST and T wave abnormality, consider anterolateral Diagnosis Line: ischemia Diagnosis Line: Prolonged QT Diagnosis Line: Abnormal ECG Diagnosis Line: Diagnosis Line: Confirmed by JOE ZAPATA MD ([id number]) on 10/09/2016 Diagnosis Line: 5:29:05 PM INTERPRETING MD: BENNY MORA
--- NOTE | ~2016-10-08 | DS ---
Unit #: [id number] #: [id number] Patient: ERICKSON SILVA [id number] [address] [place], [place] [address] [id number] I MR#: [id number] NAME: ERICKSON SILVA ROOM: 560 Age: 76 Sex: F Admission Date: 10/09/2016 : 1940 Discharge Date: 10/11/2016 Attending Physician: Fareed Carreon M.D. Primary Care Physician: David Julien M.D. DISCHARGE SUMMARY PRINCIPAL DISCHARGE DIAGNOSES 1. Right upper extremity pain of unclear etiology, they came and went. 2. Paroxysmal atrial fibrillation. 3. Chronic obstructive pulmonary disease. 4. Hypertension. 5. Hyperlipidemia. 6. Coronary artery disease. 7. Peripheral arterial disease. 8. Chronic anemia. 9. Status post coronary artery bypass grafting. 10. Chronic low back pain. 11. Insomnia. 12. Restless legs syndrome. CONSULTANTS 1. Italo Guerrier M.D. 2. Parag Up M.D. PROCEDURES None. REASON FOR HOSPITALIZATION The patient is a 76-year-old white female with history of O2 dependent COPD, coronary artery disease, chronic anemia, history of left lung cancer refusing biopsy treated with radiation therapy, hypertension, hyperlipidemia, peripheral arterial disease, chronic low back pain, insomnia, restless legs syndrome, presents herself to the emergency room with less than 24 hours of right posterior shoulder pain worse with range of motion. In the ER, she was found to be in atrial fibrillation with rapid ventricular response and was admitted. HOSPITAL COURSE The patient was started on IV Cardizem. After bolus she immediately converted back to the sinus rhythm. Cardiac enzymes remained within normal limits. Magnesium was within normal limits. Thyroid levels within normal limits. CBC on admission normal except for hemoglobin of 10.7 with a normal MCV. BNP was within normal limits. PT and PTT within normal limits. CMP normal except for an alkaline phosphatase of 95 and sodium of 134. Chest x-ray showed emphysema, chronic left basal scarring with postop changes of coronary artery bypass grafting, and soft tissues are within normal limits. CT angiogram of the chest, no PE, advanced pulmonary emphysema, chronic pulmonary and subpleural scarring in peripheral left lung base, 5 mm benign pulmonary nodule in right middle Unit #: [id number] #: [id number] Patient: DOLLY VIZCARRA,ERICKSON lobe unchanged from 05/23/2008, postop changes of coronary artery bypass grafting. The patient remained stable. She was given a prescription for Xarelto, but was unable to afford it. Cardiology needs to addresses prior to discharge. Otherwise, she appears to be stable for discharge home. She has been switched from Coreg to sotalol and remained in a sinus rhythm ever since. Currently, her medications Betapace 80 mg half p.o. b.i.d. She is given a prescription for Rollator; prescription for prednisone 40 mg for one day, 30 mg for 2 days, 20 mg for 2 days, 10 mg for 2 days. She is also on albuterol/Atrovent unit dose mini nebs at home and either Symbicort or Advair, although it is not on her list here at the hospital. She is also on Lipitor 80 mg daily, Zetia 10 mg daily, ropinirole 4 mg q.h.s., temazepam 30 mg q.h.s., furosemide 20 mg daily, lisinopril 10 mg has been stopped, ferrous sulfate 325 mg daily, Pepcid 40 mg daily, aspirin 81 mg daily, Lorcet 7.5/325 one q.i.d. p.r.n. for pain, potassium gluconate dose unknown one tab daily, Zanaflex 2 mg q.i.d. p.r.n. for muscle spasm, Nitrostat 0.4 mg sublingual p.r.n. for chest pain, vitamin D3 2000 units daily. FOLLOWUP She will follow up with me next week. DIET She is on a healthy-heart diet. Dictated by... David Julien M.D. SERENA/maik TD: 10/13/2016 11:03 JOB #: [id number] DISCHARGE SUMMARY Page 1 of 1 X David Julien MD DISCHARGE SUMMARY
[~2016-10-08 20:36] MED LIST changes: -AMOXICILLIN875 MG PO; -BAYER CHEWABLE81 MG PO; -BETAPACE80 MG PO; -COMBIVENT U/D3 M2 INH; -DULERA 200 MCG/13 GM INH; -EZETIMIBE10 MG PO; -FERROUS GLUCON324 MG PO; -FERROUS SULFAT325 MG PO; -LASIX20 MG PO; -LIPITOR80 MG PO; -LORCET PLUS 7.1 EACH PO; -NITROSTAT0.4 MG SL; -PEPCID40 MG PO; -POTASSIUM GLU2.5 ME1 PO; -POTASSIUM99 M2 PO; -PREDNISONE PO; -ROLLATOR; -ROPINIROLE HCL4 M1 PO; -TIZANIDINE HCL2 MG PO; -VITAMIN D-32000 UNI2 PO; -XARELTO15 MG PO
[2016-10-09 00:48] LABS: EOSINOPHIL# 0.2 X10e3 (0-0.7); EOSINOPHIL% 3.9 % (0.0-7.0); HEMATOCRIT 32.4 % (35.0-45.0); HEMOGLOBIN 10.7 gm/dL (12.0-16.0); LYMPHOCYTE# 0.7 X10e3 (1.0-3.5); LYMPHOCYTE% 13.3 % (17.0-45.0); MEAN CELL VOLUME 93.3 FL (83-96); MEAN CORPUSCULAR HEMOGLOBIN 30.9 PG (28-34); MEAN CORPUSCULAR HGB CONC 33.1 g/dL (30-36); MEAN PLATELET VOLUME 7.4 FL (6.5-11.5); MONOCYTE# 0.6 X10e3 (0-1.0); MONOCYTE% 12.9 % (3.0-12.0); NEUTROPHIL# 3.4 X10e3 (1.5-7.1); NEUTROPHIL% 68.9 % (40-75); PLATELET COUNT 320 X10e3 (140-420); RED BLOOD COUNT 3.48 X10e (3.90-5.30); RED CELL DISTRIBUTION WIDTH 13.8 % (11.0-15.5)
[2016-10-09 00:50] LABS: DIFF IND NO
[2016-10-09 01:07] LABS: INR 0.9; PARTIAL THROMBOPLASTIN TIME 23.9 SECONDS (23.5-31.3); PROTHROMBIN TIME (PATIENT) 10.1 SECONDS (10.0-11.7)
[2016-10-09 01:11] LABS: ALBUMIN SERUM 3.8 g/dL (3.5-5.0); BILIRUBIN, DIRECT 0.1 mg/dL (0.0-0.2); BILIRUBIN,TOTAL 0.1 mg/dL (0.2-2.0); CALCIUM SERUM 8.9 mg/dL (8.4-10.2); CREATININE SERUM 0.9 mg/dL (0.6-1.4); GLOM FILT RATE Estimated 61.3 mL/min (>60); POTASSIUM 3.7 mmol/L (3.5-5.1); PROTEIN TOTAL SERUM 7.1 g/dL (6.0-8.3)
[2016-10-09 02:08] LABS: POC - CKMB 1.3 ng/mL (0.0-7.9); POC - TROPONIN <0.05 ng/mL (<=0.05)
[2016-10-09] MEDS ORDERED: VITAMIN D-32000 UNI2 PO (07:33)
[2016-10-09] MEDS ORDERED: TEMAZEPAM30 MG PO (07:33)
[2016-10-09] MEDS ORDERED: BAYER CHEWABLE81 MG PO (07:34)
[2016-10-09] MEDS ORDERED: POTASSIUM99 M2 PO (07:34)
[2016-10-09] MEDS ORDERED: ROPINIROLE HCL4 M1 PO (07:36)
[2016-10-09] MEDS ORDERED: NITROSTAT0.4 MG SL (07:36)
[2016-10-09] MEDS ORDERED: LORCET PLUS 7.1 EACH PO (07:36)
[2016-10-09] MEDS ORDERED: EZETIMIBE10 MG PO (07:37)
[2016-10-09] MEDS ORDERED: FERROUS SULFAT325 MG PO (07:37)
[2016-10-09] MEDS ORDERED: CARVEDILOL6.25 MG PO (07:38)
[2016-10-09] MEDS ORDERED: PEPCID40 MG PO (07:38)
[2016-10-09] MEDS ORDERED: LISINOPRIL10 MG PO (07:38)
[2016-10-09] MEDS ORDERED: LIPITOR80 MG PO (07:39)
[2016-10-09] MEDS ORDERED: TIZANIDINE HCL2 MG PO (07:39)
[2016-10-09] MEDS ORDERED: LASIX20 MG PO (07:40)
[2016-10-09 10:46] LABS: CK TOTAL 49 IU/L (26-140)
[2016-10-09 11:00] LABS: THYROID STIMULATING HORMONE 0.86 uIU/ml (0.34-5.60)
[2016-10-09 11:07] LABS: FREE THYROXIN (T4) 0.9 ng/dL (0.58-1.64)
[2016-10-09 15:57] LABS: %MB 5.9 % (0.0-4.0); MB 3.8 ng/ml
[2016-10-09 20:47] LABS: %MB 5.3 % (0.0-4.0); MB 4.1 ng/ml
[2016-10-10 07:17] LABS: BUN/CREATININE RATIO 28.88; CALCIUM SERUM 9.5 mg/dL (8.4-10.2); CREATININE SERUM 0.9 mg/dL (0.6-1.4); GLOM FILT RATE Estimated 61.3 mL/min (>60); POTASSIUM 4.4 mmol/L (3.5-5.1)
[2016-10-10 07:42] LABS: HEMATOCRIT 29.3 % (35.0-45.0); HEMOGLOBIN 9.9 gm/dL (12.0-16.0); MEAN CELL VOLUME 91.7 FL (83-96); MEAN CORPUSCULAR HEMOGLOBIN 31.1 PG (28-34); MEAN CORPUSCULAR HGB CONC 33.9 g/dL (30-36); MEAN PLATELET VOLUME 7.6 FL (6.5-11.5); RED BLOOD COUNT 3.2 X10e (3.90-5.30)
[2016-10-10 08:13] LABS: WHITE BLOOD COUNT 11.3 X10e3 (4.0-10.5)
[2016-10-11 07:47] LABS: CALCIUM SERUM 9.2 mg/dL (8.4-10.2); CREATININE SERUM 0.8 mg/dL (0.6-1.4); GLOM FILT RATE Estimated 70.7 mL/min (>60); MAGNESIUM 2.1 mg/dL (1.6-3.0); POTASSIUM 3.9 mmol/L (3.5-5.1)
[2016-10-11] MEDS ORDERED: XARELTO15 MG PO (11:00)
[2016-10-11] MEDS ORDERED: BETAPACE80 MG PO (11:01)
[2016-10-11] MEDS ORDERED: ROLLATOR (11:02)
[2016-10-11] MEDS ORDERED: PREDNISONE PO (11:03)
[2016-10-11] MEDS ORDERED: COMBIVENT U/D3 M2 INH (11:20)
== END 2016-10-11 16:01 | disposition home or self-care (01) | DRG 309 ==
LOC: CED 20:36 → C5B 10-09 05:30 → CED 10-09 05:30 → CEDOF 10-09 05:30 → C5B 10-09 06:59 → CEDOF 10-09 06:59 → C5B 10-11 16:01
PROVIDERS: Emergency Medicine; Internal Medicine; Nurse Practitioner; Physician Assistant Medical
PROC: B32SYZZ Computerized Tomography (CT Scan) of Right Pulmonary Artery using Other Contrast (ICD-10-PCS; principal; 2016-10-09)
PROC: B32TYZZ Computerized Tomography (CT Scan) of Left Pulmonary Artery using Other Contrast (ICD-10-PCS; 2016-10-09)
PROC: B24BYZZ Ultrasonography of Heart with Aorta using Other Contrast (ICD-10-PCS; 2016-10-09)
DX: I48.91 Unspecified atrial fibrillation (principal); J96.10 Chronic respiratory failure, unspecified whether with hypoxia or hypercapnia; Z99.81 Dependence on supplemental oxygen; I08.3 Combined rheumatic disorders of mitral, aortic and tricuspid valves; J44.9 Chronic obstructive pulmonary disease, unspecified; M79.601 Pain in right arm; I73.9 Peripheral vascular disease, unspecified; Z95.1 Presence of aortocoronary bypass graft; G25.81 Restless legs syndrome; M54.5 Low back pain; G89.29 Other chronic pain; E78.5 Hyperlipidemia, unspecified; F51.04 Psychophysiologic insomnia; Z95.2 Presence of prosthetic heart valve; Z85.118 Personal history of other malignant neoplasm of bronchus and lung; Z87.891 Personal history of nicotine dependence; Z98.42 Cataract extraction status, left eye; Z98.41 Cataract extraction status, right eye; Z90.49 Acquired absence of other specified parts of digestive tract; Z79.82 Long term (current) use of aspirin; I25.119 Atherosclerotic heart disease of native coronary artery with unspecified angina pectoris; D64.89 Other specified anemias
CPT/HCPCS: 36415; 70360; 71010; 71275; 80048; 80076; 82550; 82553; 83735; 83880; 84439; 84443; 84484; 85025; 85027; 85610; 85730; 93005; 93306; 94640; 94664; 94760; 96374; 96375; 99285; J1200; J2920; J2930; Q9967

== ENCOUNTER 2016-10-17 14:48 | Inpatient (IN) | payer MEDICARE ==
[~2016-10-17] VITALS: Ht 165.1 cm; Wt 63.2 kg
--- NOTE | ~2016-10-17 | CT23 ---
[facility] A Service of [facility] RADIOLOGY TEXT RESULTS PATIENT: ERICKSON VIZCARRA LOCATION: [facility] 319-01 : 38 UNIT #: [id number] AGE: [address]: David Julien MD SEX: F ORDER DR: [id number] [facility] [address]. [place], [place] [address] [id number] I MR#: [id number] #: [id number] NAME: ERICKSON VIZCARRA : 1940 SEX: F STUDY DATE/TIME: 10/17/2016 20:19 UNIT: [address] ROOM: [facility] STUDY DESCRIPTION: CT Angio Neck Attending Physician: David Julien M.D. Ordering Physician: David Julien M.D. Primary Care Physician: David Julien M.D. MEDICAL IMAGING REPORT This report is preliminary unless electronic signature is present EXAM CT angio neck INDICATIONS Slurred speech. One-day duration. Visual disturbance. TIA. FINDINGS Please see [facility] ANGIO HEAD report for combined text results. Dictated by... Marcos Price M.D. THIS IS AN ELECTRONICALLY VERIFIED REPORT Marcos Price M.D. at 10/20/2016 11:09 AM JOSE/andreas TD: 10/20/2016 10:02 JOB #: [id number] MEDICAL IMAGING REPORT Page 1 of 1 COPY
--- NOTE | ~2016-10-17 | DS ---
Unit #: [id number] #: [id number] Patient: ERICKSON VIZCARRA [id number] [id number] [place], [place] [address] [id number] I MR#: [id number] NAME: ERICKSON VIZCARRA ROOM: 319 Age: 76 Sex: F Admission Date: 10/17/2016 : 1940 Discharge Date: 10/19/2016 Attending Physician: David Julien M.D. Primary Care Physician: David Julien M.D. DISCHARGE SUMMARY PRINCIPAL DISCHARGE DIAGNOSES 1. Transient ischemic attack. 2. Paroxysmal atrial fibrillation. 3. Noncompliance with anticoagulation therapy. 4. Peripheral arterial disease. 5. Coronary artery disease, status post coronary artery bypass grafting. 6. Hyperlipidemia. 7. Restless leg syndrome. 8. Chronic insomnia. 9. Chronic low back pain. 10. Chronic obstructive pulmonary disease. 11. History of left lung cancer, type unknown. 12. Hypertension. PROCEDURES None. CONSULTANTS Dr. Davis from neurology. REASON FOR HOSPITALIZATION The patient is a 76-year-old white female with a history of coronary disease, peripheral arterial disease, bilateral carotid endarterectomies, coronary artery bypass grafting, restless leg syndrome, hypertension, hyperlipidemia, chronic insomnia, chronic low back pain, paroxysmal atrial fibrillation discovered last admission, placed on Xarelto but was noncompliant because of television commercials with post splitter. In any case, she presented to the emergency room with sudden onset of slurred speech, change in vision, facial drooping. Resolved prior to arriving in the emergency room. Per her friend and herself, it lasted about 15-30 minutes. In the emergency room, again her symptoms have resolved. She was placed back on her regular medicines including the Xarelto which, again, she was not taking. She was already on aspirin and full dose Lipitor. CT angiogram was obtained. I don't have the official report but, per the wet read, showed no significant stenosis. MRI of the brain showed extensive small vessel disease but no acute strokes. She had had a 2D echo last admission on 10/09/16. Technically difficult study. EF 55%, moderate septal hypokinesis, mild concentric LVH, mild to moderate left atrial dilatation. Bubble study, no shunt. Mild aortic stenosis, mild to moderate aortic regurg, mild to moderate mitral regurg, mild to moderate tricuspid regurg. Right ventricular systolic pressure of 36 mm. No pericardial effusion. Patient has had no further symptoms here and will be discharged home on a healthy heart diet. Unit #: [id number] #: [id number] Patient: ERICKSON VIZCARRA She was encouraged to be compliant with her medicines and not get medical advice from the TV set. 1. She is to resume her home dose of Advair or Symbicort. I am not sure which one she is on. 2. She is on, as well, Duo-Nebs 4x daily. 3. Xarelto 15 mg daily. 4. Atorvastatin 80 mg daily. 5. Zetia 10 mg daily. 6. Ropinirole 4 mg q. h.s. 7. Temazepam 30 mg q. h.s. 8. Betapace 40 mg b.i.d. 9. Lasix 20 mg daily. 10. Ferrous sulfate 325 mg daily. 11. Pepcid 40 mg daily. 12. Aspirin 81 mg daily. 13. Lorcet 7.5/325, 1 q.i.d. p.r.n. for pain. 14. Potassium gluconate 10 mEq daily. 15. Tizanidine 2 mg q.i.d. p.r.n. for muscle spasm. 16. Nitrostat 0.4 mg sublingual p.r.n. for chest pain. 17. Vitamin D3 2000 units p.o. daily. She will follow up in the office in 1 week. Dictated by... David Julien M.D. SERENA/irina TD: 10/21/2016 12:35 JOB #: [id number] DISCHARGE SUMMARY Page 1 of 1 X David Julien MD X DISCHARGE SUMMARY
--- NOTE | ~2016-10-17 | HP ---
Unit #: [id number] #: [id number] Patient: ERICKSON VIZCARRA [id number] [id number] [facility]. [place], [place] [address] [id number] I MR#: [id number] NAME: ERICKSON VIZCARRA ROOM: 319 Age: 76 Sex: F Admission Date: 10/17/2016 : 1940 Attending Physician: David Julien M.D. Primary Care Physician: David Julien M.D. HISTORY AND PHYSICAL HISTORY OF PRESENT ILLNESS 76-year-old white female, history of paroxysmal atrial fibrillation recently diagnosed, placed on Xarelto but noncompliant with same because of lawsuit she saw on TV. Had an echo last admission which is not available in [facility]. In any case, she presented to the emergency room with about 15 minutes of facial droop, change in vision, slurred speech, noticed by a friend of hers. Brought to the emergency room. There, CT scan was negative. Other lab work is fairly unremarkable and she is readmitted for further evaluation. She has already had the MRI of her brain with and without contrast because of a history of lung cancer. CT angiogram is ordered but not performed. Neurology is consulted but hadn't shown up yet. Patient is currently completely asymptomatic. PAST MEDICAL HISTORY She has no known drug allergies. MEDICATIONS Medications prior to admission: 1. Vitamin D3, 2000 units daily. 2. Restoril 30 mg q. h.s. 3. Potassium, dose unknown, 1 tab daily. 4. Aspirin 81 mg daily. 5. Lorcet 7.5/325, 1 q.i.d. p.r.n. 6. Nitrostat 0.4 mg sublingual p.r.n. 7. Ropinirole 4 mg q. h.s. 8. Zetia 10 mg daily. 9. Ferrous sulfate 325 mg daily. 10. Pepcid 40 mg daily. 11. Zanaflex 2 mg 4x daily p.r.n. 12. Lipitor 80 mg daily. 13. Lasix 20 mg daily. 14. Xarelto 15 mg daily. 15. Betapace 40 mg b.i.d. 16. Prednisone on a weaning course. 17. Combivent inhaler p.r.n. 18. O2 at 3 L nasal cannula continuously. PAST MEDICAL HISTORY Again on past medical history: 1. Coronary artery disease. 2. Coronary artery bypass grafting. 3. Peripheral arterial disease. 4. Hypertension. 5. Hyperlipidemia. Unit #: [id number] #: [id number] Patient: ERICKSON VIZCARRA 6. COPD. 7. Left lung cancer, type unknown, treated with radiation therapy as the patient apparently refused biopsy. 8. Chronic anemia. SURGICAL HISTORY 1. Cholecystectomy. 2. Right foot surgery. 3. Hemorrhoidectomy. 4. 3 vessel coronary artery bypass grafting. 5. Bilateral carotid endarterectomies. 6. Bilateral cataract surgery. SOCIAL HISTORY Prior smoker, nondrinker, no illicit drug use. FAMILY HISTORY Noncontributory. PHYSICAL EXAM GENERAL: She is awake, alert, oriented x3, in no acute distress. VITAL SIGNS: Afebrile. Pulse 58, respirations 20, blood pressure 157/56. O2 sats 100% on 3 L. HEENT: HEENT was unremarkable. NECK: Neck was supple without JVD, bruits, adenopathy or thyromegaly. CHEST: Diffusely decreased breath sounds but clear to auscultation. HEART: Heart as a regular rate and rhythm without any murmurs, rubs or gallops. ABDOMEN: Abdomen was soft, nondistended and nontender with positive bowel sounds and no hepatosplenomegaly. EXTREMITIES: Extremities showed no clubbing, cyanosis or edema. AND RECTAL: and rectal are deferred. NEUROLOGIC: Neurologic exam is grossly intact. LAB VALUES Chest x-ray - status post CABG. No cardiomegaly, no active disease. EKG - sinus bradycardia, nonspecific ST-T abnormality. CT scan of the head - atrophy and progressing chronic small vessel disease. Urinalysis - 1+ blood, 2-5 RBCs. Cardiac enzymes normal x2. White count 11, hemoglobin 9.1 with a normal indices. Platelets 421,000. PTT 20.8, PT/INR is 1.0. IMPRESSION 1. TIA. 2. Paroxysmal atrial fibrillation. 3. Noncompliant with anticoagulation therapy. 4. COPD. 5. Hypertension. 6. History of left lung cancer. 7. Coronary artery disease, status post coronary artery bypass grafting. 8. Peripheral arterial disease, status post bilateral carotid endarterectomies. 9. Chronic low back pain. Unit #: [id number] #: [id number] Patient: ERICKSON VIZCARRA 10. Restless leg syndrome. 11. Chronic insomnia. 12. Chronic anemia. PLAN CT angiogram of the head and neck. MRI of the brain. Encouraged compliance. Neurology consulted. Review echo from last admission as [facility]. Dictated by Ifrah Dennis/irina TD: 10/18/2016 15:41 JOB #: [id number] HISTORY AND PHYSICAL Page 1 of 1 X David Julien MD X HISTORY AND PHYSICAL
--- NOTE | ~2016-10-17 | CT71 ---
[facility] A Service of [facility] RADIOLOGY TEXT RESULTS PATIENT: ERICKSON VIZCARRA LOCATION: [facility] 319- : 38 UNIT #: [id number] AGE: [address]: David Julien MD SEX: F ORDER DR: [id number] [facility]. [place], [place] [address] [id number] I MR#: [id number] Acc #: [id number] NAME: ERICKSON VIZCARRA : 1940 SEX: F STUDY DATE/TIME: 10/17/2016 16:55 UNIT: A U ROOM: 319 STUDY DESCRIPTION: CT Head Wo Contrast Attending Physician: David Julien M.D. Ordering Physician: Tristian Castillo M.D. Primary Care Physician: David Julien M.D. MEDICAL IMAGING REPORT This report is preliminary unless electronic signature is present EXAM Head CT no contrast 10/17/2016 INDICATION 76-year-old female with slurred speech prior to arrival at 1500 hours. Some visual disturbances. Have all now resolved. Lung cancer, COPD. TECHNIQUE Noncontrast CT of the brain was performed. Comparison 12/20/2012. This CT examination was performed with one or more of the following radiation dose reduction techniques: automatic exposure control, adjustment of mA and/or kV according to patient size, and iterative reconstruction. FINDINGS There is generalized atrophy. Sulci and ventricles otherwise unremarkable. No midline shift. There is no evidence of acute intracranial hemorrhage. No mass, mass effect or edema to suggest acute infarct and no extraaxial fluid collections are present. Chronic ischemic changes are present in the periventricular and deep white matter. There has been interval progression since the prior study of 2012. Globes intact. Bones intact. Sinuses clear. IMPRESSION Atrophy and chronic ischemic changes. Interval progression of chronic ischemic change compared to the prior study but no clearly acute intracranial process or evidence of acute intracranial hemorrhage. Dictated by... Gee Posadas M.D. THIS IS AN ELECTRONICALLY VERIFIED REPORT [facility] A Service of [facility] RADIOLOGY TEXT RESULTS PATIENT: ERICKSON VIZCARRA LOCATION: [facility] 319-01 : 38 UNIT #: [id number] AGE: [address]: David Julien MD SEX: F ORDER DR: Gee Posadas M.D. at 10/18/2016 11:25 PM SURINDER/luisa TD: 10/18/2016 07:59 JOB #: [id number] MEDICAL IMAGING REPORT Page 1 of 1 COPY
--- NOTE | ~2016-10-17 | CR72 ---
[facility] A Service of [facility] & [facility] RADIOLOGY TEXT RESULTS PATIENT: ERICKSON VIZCARRA LOCATION: [facility] 319- : 38 UNIT #: [id number] AGE: [address]: David Julien MD SEX: F ORDER DR: [id number] [facility] [address]. [place], [place] [address] [id number] I MR#: [id number] Acc #: [id number] NAME: ERICKSON VIZCARRA : 1940 SEX: F STUDY DATE/TIME: 10/17/2016 17:26 [facility] STUDY DESCRIPTION: CR Chest Single View Portable Attending Physician: David Julien M.D. Ordering Physician: Magan Mendenhall M.D. Primary Care Physician: David Julien M.D. MEDICAL IMAGING REPORT This report is preliminary unless electronic signature is present EXAM AP view of the chest COMPARISON October 09, 2016, July 28, [address] chest dated October 09, 2016. INDICATION 76-year-old female with dyspnea and slurred speech today. Recent syncope. History of hypertension. FINDINGS No evidence of pneumothorax or pleural effusion. Biapical pleural parenchymal scarring is grossly stable. Interstitial opacities in both lung bases are grossly stable likely reflecting scarring and chronic lung disease. Changes of CABG are noted. Cardiomediastinal silhouette is stable and within normal limits. No convincing evidence of acute airspace disease. Stable pleural parenchymal scarring in the left lateral lung base. IMPRESSION No acute radiographic abnormality of the chest. Stable bibasilar atelectasis versus scarring. Prior CABG with normal heart size. Dictated by... Magdy Sanchez M.D. THIS IS AN ELECTRONICALLY VERIFIED REPORT Magdy Sanchze M.D. at 10/21/2016 10:59 PM JONELLE/luisa TD: 10/18/2016 08:47 JOB #: [id number] [facility] A Service of [facility] RADIOLOGY TEXT RESULTS PATIENT: ERICKSON VIZCARRA LOCATION: [facility] 319-01 : 38 UNIT #: [id number] AGE: [address]: David Julien MD SEX: F ORDER DR: MEDICAL IMAGING REPORT Page 1 of 1 COPY
--- NOTE | ~2016-10-17 | CT17 ---
[facility] A Service of [facility] & [facility] RADIOLOGY TEXT RESULTS PATIENT: ERICKSON VIZCARRA LOCATION: [facility] 319-01 : 38 UNIT #: [id number] AGE: [address]: David Julien MD SEX: F ORDER DR: [id number] [facility] [address]. [place], [place] [address] [id number] I MR#: [id number] Acc #: [id number] NAME: ERICKSON VIZCARRA : 1940 SEX: F STUDY DATE/TIME: 10/17/2016 20:19 UNIT: A U ROOM: 319 STUDY DESCRIPTION: CT Angio Head Attending Physician: David Julien M.D. Ordering Physician: David Julien M.D. Primary Care Physician: David Julien M.D. MEDICAL IMAGING REPORT This report is preliminary unless electronic signature is present EXAM CTA head and neck INDICATIONS Slurred speech. One-day duration. Visual disturbance. TIA. TECHNIQUE CT angiogram of the head and neck utilizing 100 mL Isovue-370 IV contrast. Coronal and sagittal 3-D MIP reconstructions were obtained. Volume-rendered and surface-rendered reconstructions were reviewed. Curved planar reconstructions were also reviewed. This CT exam was performed with one or more of the following radiation dose reduction techniques: Automatic exposure control, adjustment of mA and/or kV according to patient size, and iterative reconstruction. COMPARISON MRI of the brain 10/18/[address] head dated 10/17/2016. FINDINGS CTA NECK: Evaluation for significant carotid arterial stenosis is based upon the NASCET criteria. There is a three-vessel aortic arch. There is moderate atherosclerotic disease of the arch vessels, however this is not felt to be hemodynamically significant. There is moderate atherosclerotic disease of both carotid arteries, most pronounced at the carotid bifurcations. No evidence of a significant stenosis, however. There is dense atherosclerotic disease at the origin of the right vertebral artery. This appears to be a significant stenosis, however, the dense calcification can overestimate the perceived stenosis. The vertebral artery remains patent beyond the origin. Mild atherosclerotic disease is noted in the vertebral arteries. [facility] A Service of [facility] & [facility] RADIOLOGY TEXT RESULTS PATIENT: ERICKSON VIZCARRA LOCATION: [facility] 319-01 : 38 UNIT #: [id number] AGE: [address]: David Julien MD SEX: F ORDER DR: CTA HEAD: There is moderate atherosclerotic disease of the intracranial internal carotid arteries. No evidence of a significant stenosis. There is moderate atherosclerotic disease of the M1 segment of the middle cerebral arteries. This does not result in significant stenosis. There is a focal narrowing of the M2 branches. No vascular thrombosis. The anterior cerebral arteries are patent. Not mentioned above, there is stenosis of the M2 segments of the right middle cerebral artery, as well. The vertebrobasilar arteries are patent; however, there is mild atherosclerotic disease. Both posterior cerebral arteries are patent. The posterior communicating arteries are not clearly identified (likely due to disease contamination). No dural venous thrombus. IMPRESSION 1. Moderate atherosclerotic disease throughout the vasculature of the neck. 2. Dense calcification at the origin of the right vertebral artery appears to result in a significant right vertebral artery stenosis. The remainder of the vessel is patent. Please note that dense atherosclerotic calcifications can overestimate the degree of stenosis on CT. 3. Moderate atherosclerotic disease of the intracranial internal carotid arteries particularly involving the M1 and M2 segments of the middle cerebral arteries. The right MCA distribution is affected to a greater degree than the left MCA distribution. No evidence of vascular thrombosis or aneurysm. Initial interpretation was provided by Dr. Magdy Sanchez at 21:46 on 10/17/2016. Dictated by... Marcos Price M.D. THIS IS AN ELECTRONICALLY VERIFIED REPORT Marcos Price M.D. at 10/20/2016 11:08 AM JOSE/andreas TD: 10/20/2016 09:59 JOB #: [id number] MEDICAL IMAGING REPORT Page 1 of 1 COPY
--- NOTE | ~2016-10-17 | MR17 ---
[facility] A Service of [facility] & [facility] RADIOLOGY TEXT RESULTS PATIENT: ERICKSON VIZCARRA LOCATION: A 319-01 : 38 UNIT #: [id number] AGE: [address]: David Julien MD SEX: F ORDER DR: [id number] [facility] [address] [place], [place] [address] [id number] I MR#: [id number] Acc #: [id number] NAME: ERICKSON VIZCARRA : 1940 SEX: F STUDY DATE/TIME: 10/18/2016 8:08 UNIT: A U ROOM: 319 STUDY DESCRIPTION: MR Brain WWo Contrast Attending Physician: David Julien M.D. Ordering Physician: David Julien M.D. Primary Care Physician: David Julien M.D. MRI CENTER REPORT This report is preliminary unless electronic signature is present. EXAM Brain MRI with and without HISTORY TIA. Slurred speech prior to arrival at Hospital at 15:00 on 10/17/2016. Patient had some visual disturbances that have since resolved. History of hypertension, prior lung cancer. Cardiac disease. COMMENT MRI of the brain was performed prior to and following intravenous administration of 12 mL of MultiHance. Preliminary wet reading provided by Dr. Jay Jay Munoz. Comparison head CT is from 10/17/2016. There is a previous brain MRI also from 08/09/2009. There is no evidence for a recent ischemic insult on the diffusion series. No Chiari-I malformation. Post cataract surgery bilaterally. Mild paranasal sinus mucosal thickening without sinus air-fluid level. Mastoid air cells essentially clear. The major arterial intracranial flow voids are maintained. There is no extraaxial fluid collection. There is mild age-appropriate volume loss. There is extensive white matter signal abnormality which is nonspecific but probably due to small vessel disease given age group and risk factors. Patchy signal abnormality in the christianne is mild but also likely due to small vessel disease. Multiple small chronic lacunes in the bilateral basal ganglia. No MRI evidence for intracranial hemorrhage. Following contrast administered, there is no pathologic intracranial enhancement. Specifically, there is nothing to suggest intracranial metastatic disease. On comparison to the prior study there has been considerable progression of the patient's white matter disease. [facility] A Service of [facility] RADIOLOGY TEXT RESULTS PATIENT: ERICKSON VIZCARRA LOCATION: [facility] 319-01 : 38 UNIT #: [id number] AGE: [address]: David Julien MD SEX: F ORDER DR: IMPRESSION 1. No evidence for a recent ischemic insult on the diffusion series. 2. Extensive probable sequelae of small vessel disease with considerable progression since 2009. 3. Nothing to suggest intracranial metastatic disease. STAT * RESULT Dictated by... Eugenia Riojas M.D. THIS IS AN ELECTRONICALLY VERIFIED REPORT Eugenia Riojas M.D. at 10/20/2016 2:09 PM Darius TD: 10/20/2016 08:19 JOB #: [id number] MRI CENTER REPORT Page 1 of 1 COPY
--- NOTE | ~2016-10-17 | EKG ---
PATIENT: [facility] UNIT #: [id number] Ventricular Rate: 55 BPM Atrial Rate: 55 BPM P-R Interval: 136 ms QRS Duration: 80 ms Q-T Interval: 438 ms QTC Calculation(Bezet): 419 ms P [place]: 94 degrees Calculated R [place]: 62 degrees Calculated T [place]: 97 degrees Diagnosis Line: Sinus bradycardia Diagnosis Line: Nonspecific ST and T wave abnormality Diagnosis Line: Abnormal ECG Diagnosis Line: Diagnosis Line: Confirmed by WILFRED URENA MD ([id number]) on Diagnosis Line: 10/18/2016 5:01:35 PM INTERPRETING MD: MERI
--- NOTE | ~2016-10-17 | EKG ---
PATIENT: BATAVIA, ROY UNIT #: [id number] Ventricular Rate: 67 BPM Atrial Rate: 67 BPM P-R Interval: 134 ms QRS Duration: 84 ms Q-T Interval: 430 ms QTC Calculation(Bezet): 454 ms P [place]: 29 degrees Calculated R [place]: 64 degrees Calculated T [place]: 93 degrees Diagnosis Line: Sinus rhythm with Premature atrial complexes Diagnosis Line: Nonspecific ST and T wave abnormality Diagnosis Line: Abnormal ECG Diagnosis Line: Diagnosis Line: Confirmed by WILFRED URENA MD ([id number]) on Diagnosis Line: 10/18/2016 5:09:20 PM INTERPRETING MD: MERI
--- NOTE | ~2016-10-17 | CO ---
Unit #: [id number] #: [id number] Patient: ERICKSON VIZCARRA [id number] [facility] [address] [facility]. [place], [place] [address] [id number] [place] MR#: [id number] NAME: ERICKSON VIZCARRA ROOM: 319 Age: 76 Sex: F Admission Date: 10/17/2016 : 1940 Attending Physician: David Julien M.D. Primary Care Physician: David Juilen M.D. Consultation Date: 10/18/2016 CONSULTATION REPORT REASON FOR CONSULTATION Speech problem. PATIENT IDENTIFICATION This is a 76-year-old right-handed white female, who is evaluated in room 319 at [facility]. SOURCE OF INFORMATION The patient and evaluation done by Dr. Julien, as a matter of fact, she was just discharged last week. PROBLEM LIST 1. She had right upper extremity pain of unclear etiology that was evaluated. 2. Paroxysmal atrial fibrillation. She has been started on Xarelto. She is already on aspirin. 3. COPD. 4. Hypertension. 5. Coronary artery disease. 6. Hyperlipidemia. 7. Peripheral arterial disease. 8. Chronic anemia. 9. Status post coronary artery bypass grafting. 10. Chronic low back pain. 11. Insomnia. 12. Restless legs syndrome. 13. Lung cancer, status post radiation therapy. 14. History of GI bleed with AVM, status post cauterization. 15. She has bilateral carotid endarterectomies done. 16. Hemorrhoidectomy. 17. Right foot surgery. 18. Cholecystectomy. 19. Bilateral cataract extraction. 20. Former smoker. HISTORY OF PRESENT ILLNESS This is a 76-year-old female, who is actually was in this hospital from 10/09/2016 through 10/11/2016. She had some right-sided pain and peripheral artery disease and other issues and she was diagnosed with paroxysmal atrial fibrillation. She was started on Xarelto and she now comes back with her friend reporting that she could not understand her for a few minutes. She came around 04:48. Initially, code stroke was entertained, but she was not a tPA candidate because of her being on Xarelto, so I requested a CTA, which did not show any cut off, but the Unit #: [id number] #: [id number] Patient: ERICKSON VIZCARRA official reading is pending, already have CT and MRI and really does not show anything major to me, but again my monitors and official reading monitors are different, so we will await for the official reading. She is already on aspirin and Xarelto. She denies any problems. She says that maybe she woke up from sleep and she was not clear and what she wanted to say, but that is not really how the friend reported it. The patient denies ever any speech problems, swallowing problems, breathing problems, or focal numbness or weakness or seizure or anything of the sort. She does have significant small-vessel disease on her MRI. PAST MEDICAL HISTORY As discussed above. PAST SURGICAL HISTORY As discussed above. ALLERGIES None. MEDICATIONS Medications based on recent discharge MAR are vitamin D3, temazepam 30 mg at bedtime, Russ chewable aspirin, Lorcet Plus 7.5/325, Nitrostat as needed, ropinirole 4 mg at bedtime, ezetimibe, ferrous sulfate, Pepcid, tizanidine 2 mg q.i.d. as needed, Lortab 80 mg, Lasix 20 mg, Xarelto 15 mg daily, Betapace 40 mg, prednisone. I believe Combivent was discontinued. FAMILY HISTORY Positive for heart problems. SOCIAL HISTORY The patient was recently in assisted living facility. She quit smoking in 2002. Denies any illicit drug use. REVIEW OF SYSTEMS Mostly as discussed history of present illness. CONSTITUTIONAL: The patient denies any recent weight issues, fever, chills, rigors, sweats. HEENT: No headaches, no double vision, earache, runny nose, or sore throat. CARDIOVASCULAR: No chest pain, clubbing, cyanosis, orthopnea, or palpitation. PULMONARY: No shortness of air, cough, or expectoration. No nausea, vomiting, diarrhea, or constipation. GENITOURINARY: No genitourinary symptom. EXTREMITIES: No other extremity problems. BACK: No back problem. PSYCHIATRIC: No psychotic issue. NEUROLOGIC: As discussed. She is on anticoagulation. No other hematologic, dermatologic, endocrine problems. PHYSICAL EXAMINATION VITAL SIGNS: Temperature 97.9, pulse 63, respirations 20, blood pressure 157/56, O2 sats were 92% to 100% weight, of 140 pounds. BMI was 23. NEUROLOGIC: The patient is awake. She is alert. She is oriented. She Unit #: [id number] #: [id number] Patient: ERICKSON VIZCARRA can name. She can follow commands. No right/left confusion. No finger agnosia. Cranial nerve examination demonstrates full [place] of vision to confrontation. Eye movements are conjugate. I did not see any ptosis. I did not see any nystagmus. Extraocular movements are intact. Sensation on the face and scalp are normal. Strength of muscles of facial expression normal. Hearing seemed to be intact. Tongue was midline. Uvula was midline. Head turning was spontaneous. Motor examination demonstrated normal bulk, tone. Strength was 5-/5 all over. Sensory examination intact for soft touch and pain sensation. No extinction was seen. Romberg was not evaluated. Gait examination was deferred. Coordination was normal for agowgi-ck-zofz-to-finger. I could not get any reflexes. DIAGNOSTIC STUDIES LABORATORY RESULTS and IMAGING STUDIES: Reviewed personally. Official reading pending for both the tests. IMPRESSION 1. Very nonspecific symptoms of sort of unclear speech. Obviously, she was not a tPA candidate. She was not an interventional candidate. She is already on aspirin. She is already on Xarelto. She is already on Lipitor 80. My system will be nonspecific. Speech problem resolved. 2. Transient ischemic attack is very questionable. 3. Continue cardiac monitoring and good perfusion pressure and supportive care. Call me if any other questions, issues, or concerns. If MRI is okay, I will not do any changes and have her follow up with Dr. Mullins. If there is any other issues, I will be more than glad to re-intervene and different anticoagulation may be considered also if needed. Stroke education, maximizing medical management. Dictated by... Ifrah Montano/maik TD: 10/18/2016 20:48 JOB #: [id number] CONSULTATION REPORT Page 1 of 1 X Cody Davis MD CONSULTATION REPORT
[~2016-10-17 14:48] MED LIST changes: +BAYER CHEWABLE81 MG PO; +BETAPACE80 MG PO; +COMBIVENT U/D3 M2 INH; +EZETIMIBE10 MG PO; +FERROUS SULFAT325 MG PO; +LASIX20 MG PO; +LIPITOR80 MG PO; +LORCET PLUS 7.1 EACH PO; +NITROSTAT0.4 MG SL; +PEPCID40 MG PO; +POTASSIUM99 M2 PO; +PREDNISONE PO; +ROLLATOR; +ROPINIROLE HCL4 M1 PO; +TIZANIDINE HCL2 MG PO; +VITAMIN D-32000 UNI2 PO; +XARELTO15 MG PO
[2016-10-17 16:18] LABS: POC - CKMB 1.3 ng/mL (0.0-7.9); POC - TROPONIN <0.05 ng/mL (<=0.05)
[2016-10-17 16:45] LABS: BASOPHIL% 0.2 % (0-2.5); EOSINOPHIL# 0.2 X10e3 (0-0.7); EOSINOPHIL% 1.5 % (0.0-7.0); HEMATOCRIT 28.1 % (35.0-45.0); HEMOGLOBIN 9.1 gm/dL (12.0-16.0); LYMPHOCYTE# 0.6 X10e3 (1.0-3.5); LYMPHOCYTE% 5.6 % (17.0-45.0); MEAN CELL VOLUME 92.7 FL (83-96); MEAN CORPUSCULAR HEMOGLOBIN 30.1 PG (28-34); MEAN CORPUSCULAR HGB CONC 32.4 g/dL (30-36); MEAN PLATELET VOLUME 7.8 FL (6.5-11.5); MONOCYTE# 0.6 X10e3 (0-1.0); MONOCYTE% 5.5 % (3.0-12.0); NEUTROPHIL# 9.6 X10e3 (1.5-7.1); NEUTROPHIL% 87.2 % (40-75); PLATELET COUNT 421 X10e3 (140-420); RED BLOOD COUNT 3.03 X10e (3.90-5.30); RED CELL DISTRIBUTION WIDTH 13.8 % (11.0-15.5)
[2016-10-17 16:47] LABS: DIFF IND NO
[2016-10-17 16:58] LABS: PARTIAL THROMBOPLASTIN TIME 20.8 SECONDS (23.5-31.3); PROTHROMBIN TIME (PATIENT) 10.6 SECONDS (10.0-11.7)
[2016-10-17 17:08] LABS: ALBUMIN SERUM 3.2 g/dL (3.5-5.0); BILIRUBIN, DIRECT 0.1 mg/dL (0.0-0.2); BILIRUBIN,INDIRECT 0.5 mg/dL (0.0-0.9); BILIRUBIN,TOTAL 0.6 mg/dL (0.2-2.0); CALCIUM SERUM 8.6 mg/dL (8.4-10.2); CREATININE SERUM 0.9 mg/dL (0.6-1.4); GLOM FILT RATE Estimated 61.3 mL/min (>60); POTASSIUM 3.5 mmol/L (3.5-5.1)
[2016-10-17 18:31] LABS: POC - CKMB 1.1 ng/mL (0.0-7.9); POC - TROPONIN <0.05 ng/mL (<=0.05)
[2016-10-17 20:14] LABS: URINE SOURCE CLEAN CATCH
[2016-10-17 20:18] LABS: URINE APPEARANCE CLEAR; URINE BILIRUBIN NEG (NEG); URINE BLOOD 1+ (NEG); URINE COLOR YELLOW; URINE GLUCOSE NEG (NEG); URINE KETONE NEG (NEG); URINE LEUKOCYTE ESTERASE NEG (NEG); URINE NITRATE NEG (NEG); URINE PROTEIN NEG (NEG); URINE SPECIFIC GRAVITY 1.008 (1.003-1.035); URINE UROBILINOGEN 0.2 MG/DL (NEG)
[2016-10-17 20:20] LABS: CULTURE INDICATED? NO; U HYALINE CASTS AUWI 0-2 /[LPF]; URINE BACTERIA AUWI NEG (NEGATIVE); URINE SQUAMOUS EPITHELIAL CELL NONE SEEN /[HPF]; UWBCS1 AUWI 0-2 (0-5)
[2016-10-19 05:16] LABS: HEMATOCRIT 26.6 % (35.0-45.0); HEMOGLOBIN 9.1 gm/dL (12.0-16.0); MEAN CELL VOLUME 91.2 FL (83-96); MEAN CORPUSCULAR HEMOGLOBIN 31.4 PG (28-34); MEAN CORPUSCULAR HGB CONC 34.4 g/dL (30-36); MEAN PLATELET VOLUME 7.4 FL (6.5-11.5); RED BLOOD COUNT 2.92 X10e (3.90-5.30); RED CELL DISTRIBUTION WIDTH 13.6 % (11.0-15.5); WHITE BLOOD COUNT 8.2 X10e3 (4.0-10.5)
[2016-10-19 07:28] LABS: ALBUMIN SERUM 3.3 g/dL (3.5-5.0); BILIRUBIN,TOTAL 0.6 mg/dL (0.2-2.0); BUN/CREATININE RATIO 25.71; CALCIUM SERUM 9.2 mg/dL (8.4-10.2); CREATININE SERUM 0.7 mg/dL (0.6-1.4); PROTEIN TOTAL SERUM 5.6 g/dL (6.0-8.3)
[2016-10-19] MEDS ORDERED: POTASSIUM GLU2.5 ME1 PO (08:09)
== END 2016-10-19 11:47 | disposition home or self-care (01) | DRG 69 ==
LOC: CED 14:48 → CEDOF 18:30 → CED 18:39 → C3A PCU 20:32 → CEDOF 20:32 → C3A PCU 10-19 11:47
PROVIDERS: Emergency Medicine; Psychiatry & Neurology Neurology
DX: G45.9 Transient cerebral ischemic attack, unspecified (principal); I08.3 Combined rheumatic disorders of mitral, aortic and tricuspid valves; I48.0 Paroxysmal atrial fibrillation; J44.9 Chronic obstructive pulmonary disease, unspecified; E78.5 Hyperlipidemia, unspecified; G25.81 Restless legs syndrome; I10 Essential (primary) hypertension; I25.10 Atherosclerotic heart disease of native coronary artery without angina pectoris; M54.9 Dorsalgia, unspecified; Z79.01 Long term (current) use of anticoagulants; Z91.14 Patient's other noncompliance with medication regimen; Z95.1 Presence of aortocoronary bypass graft; G47.00 Insomnia, unspecified; Z85.118 Personal history of other malignant neoplasm of bronchus and lung; Z90.49 Acquired absence of other specified parts of digestive tract; Z79.82 Long term (current) use of aspirin; Z87.891 Personal history of nicotine dependence
CPT/HCPCS: 36415; 70450; 70496; 70498; 70553; 71010; 80048; 80053; 80061; 80076; 81003; 82553; 82947; 83036; 84484; 85025; 85027; 85610; 85730; 86140; 93005; 94640; 94760; 99285; A9577; J1815; Q9967

== ENCOUNTER 2016-10-25 08:57 | Inpatient (IN) | payer MEDICARE ==
[~2016-10-25] VITALS: Ht 162.6 cm; Wt 66.2 kg
--- NOTE | ~2016-10-25 | DS ---
Unit #: [id number] #: [id number] Patient: ERICKSON VIZCARRA [id number] [address] [place], [place] [address] [id number] I MR#: [id number] NAME: ERICKSON VIZCARRA ROOM: 330 Age: 76 Sex: F Admission Date: 10/25/2016 : 1940 Discharge Date: 10/29/2016 Attending Physician: David Julien M.D. Primary Care Physician: David Julien M.D. DISCHARGE SUMMARY PRINCIPAL DISCHARGE DIAGNOSES 1. Acute on chronic respiratory failure. 2. Healthcare-acquired pneumonia, bilateral lower lobes. 3. Elevated BNP with normal left ventricular function. 4. Acute on chronic iron deficiency anemia with Hemoccult-negative stool. 5. Paroxysmal atrial fibrillation. 6. Recent transient ischemic attack. 7. Chronic anticoagulation therapy. 8. Chronic obstructive pulmonary disease. 9. Hyperlipidemia. 10. Peripheral arterial disease. 11. Coronary artery disease. CONSULTANTS None. PROCEDURE Transfusion of 2 units of packed RBCs on October 27, 2016. REASON FOR HOSPITALIZATION The patient is a 76-year-old white female with severe COPD, O2 dependent, and recent admission with new-onset AFib, anticoagulated, noncompliant with medication, came back with a TIA and discharged home on Xarelto. Once again presented back to the emergency room with less than 24 hours of increased shortness of breath. No chest pain, no cough, no fever. White count was normal. Labs were fairly unremarkable except for a potassium of 5.2, BNP of 444, and a hemoglobin of 7.6. Chest x-ray showed bilateral lower lobe infiltrates which were new. EKG was a sinus rhythm. Stool in the ER was Hemoccult negative x1, and the patient was admitted. HOSPITAL COURSE The patient was placed on IV steroids and IV antibiotics for her healthcare-acquired pneumonia with vancomycin, tobramycin, and Zosyn. Her O2 did not need to be titrated as she is on two and a half liters at home and she was well saturated here. She was given additional doses of Lasix because of the elevated BNP. Two more stools for occult blood were ordered but not performed as of the time of dictation. Her B12, folic acid, and ferritin were normal. Her iron was low. Procalcitonin was less than 0.05. Hemoglobin fell to 7. She was typed, crossmatched, and transfused two units. She was placed on IV iron. CT scan of the chest was performed for further evaluation and showed trace left greater than right pleural effusions, bilateral lower lobe infiltrates with some areas of consolidation, left lower scar, and an 8 mm pleural-based lesion in the right upper lobe. Recommended CT scan followup in three months. She was Unit #: [id number] #: [id number] Patient: ERICKSON VIZCARRA switched to oral antibiotics in the form of Augmentin and oral prednisone yesterday. She is continuing to improve. Her white count this morning is down to 11, hemoglobin is a little bit lower at 9.8, and platelets are normal. BNP is currently pending. BNP yesterday was 794. It should be noted, she had a recent echo about two weeks ago when she had the AFib that showed normal left ventricular function. In any case, she is being discharged home on a healthy-heart diet. CURRENT MEDICATIONS 1. Combivent unit dose mini-nebs q.4 hours p.r.n. 2. She is either on Advair or Symbicort at home and she is to resume that as previously prescribed. 3. She is given a prescription for prednisone 40 mg for 2 days, 20 mg for 2 days, 10 mg for 2 days, and then discontinue, and Augmentin 875 mg b.i.d. for an additional 7 days. 4. Lasix 40 mg daily. 5. Ferrous gluconate 324 mg p.o. b.i.d. after meals. 6. Xarelto 15 mg p.o. daily. 7. Lipitor 80 mg daily. 8. Zetia 10 mg daily. 9. Ropinirole 4 mg at bedtime. 10. Temazepam 30 mg at bedtime. 11. Betapace 40 mg b.i.d. 12. Pepcid 40 mg daily. 13. Aspirin 81 mg daily. 14. Lorcet 7.5/325 at 1 q.i.d. p.r.n. for pain. 15. Potassium gluconate 10 mg daily. 16. Tizanidine 2 mg q.i.d. p.r.n. for muscle spasm. 17. Nitrostat 0.4 mg sublingual p.r.n. for chest pain. 18. Vitamin D3 at 2000 units daily. FOLLOWUP She is to follow up in the office in one week. If she does not have stool samples that were sent here, they will be done through the office. She will also have a followup BMP, magnesium, BNP, and CBC when she follows up in the office, and she will need to have a repeat CT scan of the chest in about three months. Dictated by... David Julien M.D. SERENA/ya TD: 11/01/2016 17:04 JOB #: [id number] DISCHARGE SUMMARY Page 1 of 1 X David Julien MD X DISCHARGE SUMMARY
--- NOTE | ~2016-10-25 | CR72 ---
[facility] A Service of [facility] RADIOLOGY TEXT RESULTS PATIENT: ERICKSON VIZCARRA LOCATION: A 330- : 38 UNIT #: [id number] AGE: [address]: David Julien MD SEX: F ORDER DR: [id number] [facility] [address] [place], [place] [address] [id number] I MR#: [id number] Acc #: [id number] NAME: ERICKSON VIZCARRA : 1940 SEX: F STUDY DATE/TIME: 10/25/2016 9:27 UNIT: A U ROOM: [facility] STUDY DESCRIPTION: CR Chest Single View Portable Attending Physician: David Julien M.D. Ordering Physician: Ed Doctor [id number] [facility] Primary Care Physician: David Julien M.D. MEDICAL IMAGING REPORT This report is preliminary unless electronic signature is present EXAM Portable chest INDICATIONS Shortness of breath starting today. The patient does have history of lung cancer. FINDINGS Comparison made to a prior exam of October 17, 2016. Heart size is within normal limits. Background emphysematous changes are seen. Patient does have some background scarring at the lung bases but there is superimposed infiltrate noted at both lung bases when compared to the exam of October 17, 2016. Trace bilateral pleural effusions are suspected. Short-term followup exam to document resolution is suggested. There is a curvilinear metallic density which is projecting over the midline of the chest of uncertain clinical significance perhaps related to sternal wires as patient is status post coronary artery bypass grafting. It has been present since December 2013 and is unchanged Dictated by... Kristi Saucedo M.D. THIS IS AN ELECTRONICALLY VERIFIED REPORT Kristi Saucedo M.D. at 10/26/2016 5:02 PM AFF/lb TD: 10/26/2016 09:41 JOB #: [id number] MEDICAL IMAGING REPORT Page 1 of 1 COPY
--- NOTE | ~2016-10-25 | CT57 ---
[facility] A Service of [facility] RADIOLOGY TEXT RESULTS PATIENT: ERICKSON VIZCARRA LOCATION: [facility] 330- : 38 UNIT #: [id number] AGE: [address]: David Julien MD SEX: F ORDER DR: [id number] [facility] [address] [place], [place] [address] [id number] I MR#: [id number] Acc #: [id number] NAME: ERICKSON VIZCARRA : 1940 SEX: F STUDY DATE/TIME: 10/26/2016 11:46 UNIT: A PCU ROOM: 330 STUDY DESCRIPTION: CT Chest Wo Cont Attending Physician: David Julien M.D. Ordering Physician: David Julien M.D. Primary Care Physician: David Julien M.D. MEDICAL IMAGING REPORT This report is preliminary unless electronic signature is present EXAM CT of the chest without contrast INDICATION Shortness of breath since October 25, 2016 as well as bilateral lower extremity edema. This patient had an abnormal chest radiograph performed yesterday which showed possible infiltrate at the lung bases bilaterally. TECHNIQUE Axial CT imaging was obtained from the thoracic inlet through the dome of the diaphragm. No intravenous contrast material was administered. This CT examination was performed with one or more of the following radiation dose reduction techniques: automatic exposure control, adjustment of mA and/or kV according to patient size, and iterative reconstruction. FINDINGS Patient has background emphysematous changes. Biapical fibrosis is noted. Similar findings were present on May 2007. Stable partially calcified granuloma is seen within the right upper lobe again unchanged when compared to May 2007 and thus benign. There is an area of pleural-based nodularity identified within the right upper lobe measuring up to about 8 mm in size. There is an area of scarring identified within the left lower lobe. This actually is the site of a treated lung cancer primary. More ill-defined areas of consolidation have developed within both lungs, new when compared to September 2016. This could reflect some atelectasis but certainly superimposed infiltrate is not excluded. There are trace bilateral pleural effusions left greater than right. Thyroid gland, trachea and esophagus appear unremarkable. There is no pericardial effusion. There are coronary artery calcifications. Mediastinal lymph nodes do not appear pathologically enlarged. Thoracic aorta measures within normal size limits. [facility]. [facility] A Service of [facility] RADIOLOGY TEXT RESULTS PATIENT: ERICKSON VIZCARRA LOCATION: [facility] : 38 UNIT #: [id number] AGE: [address]: David Julien MD SEX: F ORDER DR: Images through the upper abdomen demonstrate what I think are probably vascular calcifications within the kidneys bilaterally. Gallbladder is surgically absent. I do not see any acute abnormality within the upper abdomen. Review of bony windows does not demonstrate any aggressive osseous abnormalities. There is some compression deformity seen at T3 and T4 which is unchanged when compared to the October 09 examination. IMPRESSION 1. This patient has developed some bibasilar areas of consolidation which are new when compared to October 09, 2016 examination. While potentially this could reflect some atelectasis, the possibly of superimposed infiltrate is not excluded. Patient is also noted to have trace bilateral pleural effusions left greater than right. 2. Patient does have an area of scarring identified within the left lower lobe corresponding to a previously treated area of malignancy. 3. 8 mm area of pleural-based thickening seen within the right upper lobe and was not seen on the exam from October 09 and is felt to be benign. I would however suggest short-term CT followup of all infiltrates in 3 months. 4. Stable granuloma identified within the right upper lobe. 5. Background emphysematous changes and biapical scarring. Dictated by... Kristi Saucedo M.D. THIS IS AN ELECTRONICALLY VERIFIED REPORT Kristi Saucedo M.D. at 10/28/2016 8:32 AM TRAY/luisa TD: 10/27/2016 08:33 JOB #: [id number] MEDICAL IMAGING REPORT Page 1 of 1 COPY
--- NOTE | ~2016-10-25 | HP ---
Unit #: [id number] #: [id number] Patient: ERICKSON VIZCARRA [id number] [address] [place], [place] [address] [id number] I MR#: [id number] NAME: ERICKSON VIZCARRA ROOM: 330 Age: 76 Sex: F Admission Date: 10/25/2016 : 1940 Attending Physician: David Julien M.D. Primary Care Physician: David Julien M.D. HISTORY AND PHYSICAL HISTORY OF PRESENT ILLNESS The patient is a 76-year-old white female with multiple recent admissions for new onset A fib, and then, she presented back with a TIA after not taking her Xarelto as indicated and advised. She then presented to the emergency room yesterday with shortness of air. She was told by EMS she had a CVA, but she has no stroke-like symptoms whatsoever. In the emergency room she was diagnosed with healthcare-acquired pneumonia, although she has no cough, fever, chest pain or any other symptoms. No white count. Only finding was bibasilar infiltrates on her chest x-ray. Her BNP was elevated but not addressed. Her hemoglobin was 7.8. Stool for occult blood was negative x1, and she is readmitted for further evaluation and therapy. The patient has no other complaints at this time. Her O2 sats currently on 2.5 liters, which is her home dose of oxygen, are 98%, and she appears to be comfortable and is asking for discharge. ALLERGIES On past medical history, she has no known drug allergies. HER MEDS PRIOR TO ADMISSION 1. Vitamin D3 - 2,000 units daily. 2. Temazepam 30 mg p.o. q.h.s. 3. Aspirin 81 mg daily. 4. Lorcet 7.5/325 one 4 times daily p.r.n. for pain. 5. Nitrostat 0.4 mg sublingual p.r.n. for chest pain. 6. Ropinirole 4 mg p.o. q.h.s. 7. Zetia 10 mg p.o. daily. 8. Ferrous sulfate 325 mg p.o. daily. 9. Pepcid 40 mg p.o. daily. 10. Zanaflex 2 mg q.i.d. p.r.n. for muscle spasm. 11. Lipitor 80 mg daily. 12. Lasix 20 mg daily. 13. Xarelto 15 mg p.o. daily. 14. Betapace 40 mg p.o. b.i.d. 15. Combivent inhaler per nebulizer 4 times daily. 16. Potassium gluconate 10 mEq daily. PAST MEDICAL HISTORY Patient has history of coronary artery disease, coronary artery bypass grafting, peripheral arterial disease, bilateral carotid endarterectomies, hypertension, hyperlipidemia, COPD, left lung cancer, chronic anemia. SURGICAL HISTORY Cholecystectomy, right foot surgery, hemorrhoidectomy, 3-vessel coronary artery bypass grafting, bilateral cataracts, bilateral carotid Unit #: [id number] #: [id number] Patient: VIZCARRA,ERICKSON ZACKARY endarterectomies. SOCIAL HISTORY Prior smoker. No alcohol or illicit drug use. FAMILY HISTORY Family history is noncontributory. PHYSICAL EXAM GENERAL: On physical exam she is awake, alert, oriented x3, in no acute distress. ADMISSION VITALS: Afebrile. Pulse 78, respirations 17, blood pressure 123/57, O2 sat 98% on 2.5 liters. HEENT: Unremarkable, except for a marr facies. NECK: Neck was supple without JVD, bruits, adenopathy or thyromegaly. CHEST: Diffusely decreased breath sounds with dry bibasilar crackles. CARDIOVASCULAR: Heart has a regular rate and rhythm without any murmurs, rubs or gallops. ABDOMEN: Abdomen was soft, nondistended, nontender with positive bowel sounds and no hepatosplenomegaly. EXTREMITIES: Extremities showed no clubbing or cyanosis. She has 1+ pitting edema of the bilateral lower extremities. /RECTAL: Deferred. NEUROLOGIC: Exam is grossly intact. DIAGNOSTIC STUDIES LAB VALUES: White count 8.6 with a left shift, hemoglobin 7.8 with normal indices, platelets normal. Cardiac enzymes normal. ProTime, INR normal. CMP normal except for a CO2 of 35, glucose of 130, GFR of 53.9, albumin 3.0. BNP was 444. Hemoglobin this morning is 7.6 again with a normal white count. Her potassium is up this morning at 5.3. Stool heme negative x1 done in the ER. IMAGING: Chest x-ray reportedly shows bibasilar infiltrates and small effusions. CARDIOVASCULAR: EKG - Normal sinus rhythm. IMPRESSION 1. Shortness of air. 2. Bilateral lower lobe infiltrates. 3. Elevated BNP. 4. Hyperkalemia. 5. Normocytic, normochromic anemia. 6. Paroxysmal atrial fibrillation. 7. Recent TIA. 8. COPD. 9. Hyperlipidemia. 10. Peripheral arterial disease. 11. Coronary artery disease. PLAN Stool studies x2 more sets for occult blood. Check iron, TIBC, B12 and folic acid. Maximize inhalers. IV Solu-Medrol. IV antibiotics to cover for healthcare-acquired pneumonia. Resume Xarelto. CT scan of the chest, no dye. DC potassium. Give IV Lasix. Check a procalcitonin level. Follow her hemoglobin and transfuse if it gets less than 7. Unit #: [id number] #: [id number] Patient: ERICKSON VIZCARRA Further evaluation pending results of the above. Dictated by Ifrah Dennis/shante TD: 10/26/2016 09:00 JOB #: [id number] HISTORY AND PHYSICAL Page 1 of 1 X David Julien MD X HISTORY AND PHYSICAL
--- NOTE | ~2016-10-25 | EKG ---
PATIENT: SPERRY, GLENTANA UNIT #: [id number] Ventricular Rate: 77 BPM Atrial Rate: 77 BPM P-R Interval: 142 ms QRS Duration: 86 ms Q-T Interval: 396 ms QTC Calculation(Bezet): 448 ms P [place]: 6 degrees Calculated R [place]: 55 degrees Calculated T [place]: 88 degrees Diagnosis Line: Normal sinus rhythm Diagnosis Line: Normal ECG Diagnosis Line: When compared with ECG of 18-OCT-2016 16:48, Diagnosis Line: Premature atrial complexes are no longer Present Diagnosis Line: Confirmed by JOE ZAPATA MD ([id number]) on 10/28/2016 Diagnosis Line: 7:45:01 AM INTERPRETING MD: BENNY MORA
[~2016-10-25 08:57] MED LIST changes: +POTASSIUM GLU2.5 ME1 PO
[2016-10-25 10:15] LABS: BASOPHIL# 0.1 X10e3 (0-0.3); BASOPHIL% 0.9 % (0-2.5); DIFF IND NO; EOSINOPHIL# 0.2 X10e3 (0-0.7); EOSINOPHIL% 1.9 % (0.0-7.0); HEMATOCRIT 23.1 % (35.0-45.0); HEMOGLOBIN 7.8 gm/dL (12.0-16.0); LYMPHOCYTE# 0.5 X10e3 (1.0-3.5); LYMPHOCYTE% 5.6 % (17.0-45.0); MEAN CELL VOLUME 92.8 FL (83-96); MEAN CORPUSCULAR HEMOGLOBIN 31.3 PG (28-34); MEAN CORPUSCULAR HGB CONC 33.7 g/dL (30-36); MONOCYTE# 0.9 X10e3 (0-1.0); MONOCYTE% 10.7 % (3.0-12.0); NEUTROPHIL% 80.9 % (40-75); PLATELET COUNT 363 X10e3 (140-420); RED BLOOD COUNT 2.49 X10e (3.90-5.30); RED CELL DISTRIBUTION WIDTH 14.2 % (11.0-15.5); WHITE BLOOD COUNT 8.6 X10e3 (4.0-10.5)
[2016-10-25 10:25] LABS: PROTHROMBIN TIME (PATIENT) 10.4 SECONDS (10.0-11.7)
[2016-10-25 10:25] LABS: POC - CKMB 2.6 ng/mL (0.0-7.9); POC - TROPONIN <0.05 ng/mL (<=0.05)
[2016-10-25 10:40] LABS: ALKALINE PHOSPHATASE 63 U/L (32-92); ALT (SGPT) 20 U/L (10-40); AST (SGOT) 26 U/L (10-42); BILIRUBIN, DIRECT <0.1 mg/dL (0.0-0.2); BILIRUBIN,INDIRECT 0.3 mg/dL (0.0-0.9); BILIRUBIN,TOTAL 0.4 mg/dL (0.2-2.0); BLOOD UREA NITROGEN 11 mg/dL (9-23); CALCIUM SERUM 8.5 mg/dL (8.4-10.2); CARBON DIOXIDE 35 mmol/L (22-31); CHLORIDE 99 mmol/L (100-111); GLOM FILT RATE Estimated 53.9 mL/min (>60); GLUCOSE FASTING 130 mg/dL (70-110); POTASSIUM 4.6 mmol/L (3.5-5.1); PROTEIN TOTAL SERUM 5.6 g/dL (6.0-8.3); SODIUM 138 mmol/L (135-145)
[2016-10-26 06:38] LABS: BASOPHIL% 0.3 % (0-2.5); HEMATOCRIT 23.1 % (35.0-45.0); HEMOGLOBIN 7.6 gm/dL (12.0-16.0); LYMPHOCYTE# 0.4 X10e3 (1.0-3.5); LYMPHOCYTE% 6.7 % (17.0-45.0); MEAN CELL VOLUME 92.4 FL (83-96); MEAN CORPUSCULAR HEMOGLOBIN 30.4 PG (28-34); MEAN CORPUSCULAR HGB CONC 32.9 g/dL (30-36); MEAN PLATELET VOLUME 7.6 FL (6.5-11.5); MONOCYTE# 0.4 X10e3 (0-1.0); MONOCYTE% 7.3 % (3.0-12.0); NEUTROPHIL# 5.1 X10e3 (1.5-7.1); NEUTROPHIL% 85.7 % (40-75); PLATELET COUNT 335 X10e3 (140-420); RED BLOOD COUNT 2.51 X10e (3.90-5.30); RED CELL DISTRIBUTION WIDTH 14.3 % (11.0-15.5)
[2016-10-26 06:39] LABS: DIFF IND NO
[2016-10-26 07:05] LABS: BUN/CREATININE RATIO 14.54; CALCIUM SERUM 8.7 mg/dL (8.4-10.2); CREATININE SERUM 1.1 mg/dL (0.6-1.4); GLOM FILT RATE Estimated 48.1 mL/min (>60); POTASSIUM 5.3 mmol/L (3.5-5.1)
[2016-10-26 08:28] LABS: IRON SERUM 10 ug/dL (28-170); TOTAL IRON BINDING CAPACITY 319 ug/dL (269-535); TRANSFERRIN 228 mg/dL (192-382); TRANSFERRIN SATURATION 3 % (20-50)
[2016-10-26 08:43] LABS: PROCALCITONIN <0.05 NG/ML
[2016-10-26 08:47] LABS: FOLATE (FOLIC ACID) 12.9 ng/mL (>5.8)
[2016-10-27 05:16] LABS: HEMATOCRIT 21.3 % (35.0-45.0); MEAN CELL VOLUME 91.9 FL (83-96); MEAN CORPUSCULAR HEMOGLOBIN 30.3 PG (28-34); MEAN PLATELET VOLUME 7.5 FL (6.5-11.5); RED BLOOD COUNT 2.32 X10e (3.90-5.30); RED CELL DISTRIBUTION WIDTH 14.3 % (11.0-15.5)
[2016-10-27 05:17] LABS: WHITE BLOOD COUNT 9.3 X10e3 (4.0-10.5)
[2016-10-27 05:53] LABS: BUN/CREATININE RATIO 21.11; CALCIUM SERUM 8.8 mg/dL (8.4-10.2); CREATININE SERUM 0.9 mg/dL (0.6-1.4); GLOM FILT RATE Estimated 61.3 mL/min (>60); MAGNESIUM 2.1 mg/dL (1.6-3.0)
[2016-10-27 05:58] LABS: POTASSIUM 3.7 mmol/L (3.5-5.1)
[2016-10-28 07:38] LABS: HEMATOCRIT 31.6 % (35.0-45.0); MEAN CORPUSCULAR HEMOGLOBIN 29.4 PG (28-34); MEAN CORPUSCULAR HGB CONC 33.3 g/dL (30-36); MEAN PLATELET VOLUME 7.8 FL (6.5-11.5); RED BLOOD COUNT 3.58 X10e (3.90-5.30); WHITE BLOOD COUNT 12.5 X10e3 (4.0-10.5)
[2016-10-28 08:00] LABS: BUN/CREATININE RATIO 31.11; CALCIUM SERUM 8.9 mg/dL (8.4-10.2); CREATININE SERUM 0.9 mg/dL (0.6-1.4); GLOM FILT RATE Estimated 61.3 mL/min (>60); MAGNESIUM 2.1 mg/dL (1.6-3.0); POTASSIUM 4.4 mmol/L (3.5-5.1)
[2016-10-28 08:20] LABS: HEMOGLOBIN 10.5 gm/dL (12.0-16.0); MEAN CELL VOLUME 88.3 FL (83-96)
[2016-10-29 06:45] LABS: HEMOGLOBIN 9.8 gm/dL (12.0-16.0); MEAN CELL VOLUME 88.4 FL (83-96); MEAN CORPUSCULAR HEMOGLOBIN 29.9 PG (28-34); MEAN CORPUSCULAR HGB CONC 33.9 g/dL (30-36); MEAN PLATELET VOLUME 7.7 FL (6.5-11.5); RED BLOOD COUNT 3.29 X10e (3.90-5.30); RED CELL DISTRIBUTION WIDTH 15.6 % (11.0-15.5)
[2016-10-29 07:35] LABS: CALCIUM SERUM 8.9 mg/dL (8.4-10.2); CREATININE SERUM 0.6 mg/dL (0.6-1.4); GLOM FILT RATE Estimated 87.3 mL/min (>60); MAGNESIUM 2.2 mg/dL (1.6-3.0); POTASSIUM 3.8 mmol/L (3.5-5.1)
[2016-10-29] MEDS ORDERED: DULERA 200 MCG/13 GM INH (09:01)
[2016-10-29] MEDS ORDERED: LORCET PLUS 7.1 EACH PO (09:06)
[2016-10-29] MEDS ORDERED: AMOXICILLIN875 MG PO (09:07)
[2016-10-29] MEDS ORDERED: FERROUS GLUCON324 MG PO (09:11)
[2016-10-29] MEDS ORDERED: PREDNISONE PO (09:13)
== END 2016-10-29 11:56 | disposition home or self-care (01) | DRG 189 ==
LOC: CED 08:57 → CEDOF 12:30 → CED 12:39 → CEDOF 12:39 → C3A PCU 18:16 → CEDOF 18:16 → C3A PCU 10-29 11:56
PROVIDERS: Internal Medicine; Nurse Practitioner
PROC: 30233N1 Transfusion of Nonautologous Red Blood Cells into Peripheral Vein, Percutaneous Approach (ICD-10-PCS; principal; 2016-10-27)
DX: J96.20 Acute and chronic respiratory failure, unspecified whether with hypoxia or hypercapnia (principal); J18.9 Pneumonia, unspecified organism; Z99.81 Dependence on supplemental oxygen; E87.5 Hyperkalemia; J44.9 Chronic obstructive pulmonary disease, unspecified; I48.0 Paroxysmal atrial fibrillation; Z79.82 Long term (current) use of aspirin; I25.10 Atherosclerotic heart disease of native coronary artery without angina pectoris; Z95.1 Presence of aortocoronary bypass graft; I73.9 Peripheral vascular disease, unspecified; I10 Essential (primary) hypertension; E78.5 Hyperlipidemia, unspecified; Z85.118 Personal history of other malignant neoplasm of bronchus and lung; Z90.49 Acquired absence of other specified parts of digestive tract; Z98.42 Cataract extraction status, left eye; Z98.41 Cataract extraction status, right eye; Z86.73 Personal history of transient ischemic attack (TIA), and cerebral infarction without residual deficits; D50.9 Iron deficiency anemia, unspecified; Z79.01 Long term (current) use of anticoagulants
CPT/HCPCS: 36415; 36430; 71010; 71250; 80048; 80076; 80200; 80202; 82308; 82553; 82607; 82728; 82746; 83540; 83550; 83735; 83880; 84484; 85025; 85027; 85610; 86850; 86900; 86901; 86923; 87040; 93005; 94010; 94640; 94664; 94760; 97161; 97165; 99285; C9113; G8978-GP; G8979-GP; G8980-GP; G8987-GO; G8988-GO; G8989-GO; J1940; J2543; J2916; J2920; J2930; J3260; J3370; P9016